=== PATIENT | female | born 1990 | race Caucasian/White ===

== ENCOUNTER 2016-08-29 16:16 | Emergency (ER) | payer BC ==
[2016-08-29 16:27] VITALS: O2SAT 99
[2016-08-29] MEDS ORDERED: DILAUDID 1 MG/ML INJECTION IV ONE (16:35)
[2016-08-29] MEDS ORDERED: Zofran 4 MG/2 ML VIAL IV ONE (16:35)
--- NOTE | 2016-08-29 16:42 | ERPHSYRPT ---
- History of Present Illness Time Seen by Provider: 08/29/16 16:30 Source: patient, family Exam Limitations: no limitations Patient Subjective Stated Complaint: rt headache since this morning Triage Nursing Assessment: rt headache since this morning. nausea with no vomiting. hx of migrianes. 21 weeks . photosensitivity. pupils andrés. Physician History: patient with hx of [id number]; this is typical for her and started this am; unable to get relief with meds at home; aura; right sided; retro bulbar; nausea ; photophobia mild; no fever; no trauma; no exposures, now 21 weeks Timing/Duration: today Quality: pressure Head Pain Location: frontal (right) Severity of Pain-Max: severe (8/10) Severity of Pain-Current: severe (8/10) Recent Head Trauma: no recent headache/trauma, chronic headaches Modifying Factors: Improves With: exposure to light, noise Associated Symptoms: nausea/vomiting, sensitive to light Previous symptoms: same symptoms as today Allergies/Adverse Reactions: No Known Drug Allergies Allergy (Unverified 08/29/16 16:27) Home Medications: No Reportable Medications [No Reported Medications] 05/12/16 [History] Hx Tetanus, Diphtheria Vaccination/Date Given: Yes Hx Influenza Vaccination/Date Given: No Hx Pneumococcal Vaccination/Date Given: No Immunizations Up to Date: Yes - Review of Systems Constitutional: No Symptoms Eyes: Photophobia, No Eye Pain, No Eye Redness, No Vision Changes, No Double Vision Ears, Nose, & Throat: No Symptoms Respiratory: No Cough, No Dyspnea, No Wheezing Cardiac: No Chest Pain, No Palpitations, No Syncope Abdominal/Gastrointestinal: Nausea, No Abdominal Pain, No Vomiting, No Diarrhea Genitourinary Symptoms: No Symptoms Musculoskeletal: No Symptoms Skin: No Symptoms Neurological: Headache, No Paralysis, No Parasthesia, No Seizure Psychological: No Symptoms Endocrine: No Symptoms Hematologic/Lymphatic: No Symptoms Immunological/Allergic: No Symptoms - Past Medical History Pertinent Past Medical History: Yes Neurological History: Migraines ENT History: No Pertinent History Cardiac History: No Pertinent History Respiratory History: Asthma Endocrine Medical History: No Pertinent History Musculoskeletal History: No Pertinent History GI Medical History: No Pertinent History History: No Pertinent History Psycho-Social History: No Pertinent History Female Reproductive Disorders: No Pertinent History Other Medical History: pt had been started on propranalol for headaches prior to getting - Past Surgical History Past Surgical History: No Neuro Surgical History: No Pertinent History Cardiac: No Pertinent History Respiratory: No Pertinent History Gastrointestinal: No Pertinent History Genitourinary: No Pertinent History Musculoskeletal: No Pertinent History Female Surgical History: No Pertinent History - Social History Smoking Status: Never smoker Exposure to second hand smoke: No Alcohol Use: None Drug Use: none Patient Lives Alone: No Significant Family History: no pertinent family hx - Female History Hx Now: Yes (; 21 weeks no problems to date) Expected Date of Delivery: 01/09/17 - Nursing Vital Signs Nursing Vital Signs: Initial Vital Signs Temperature 97.6 F Temperature Source Oral Pulse Rate 79 Respiratory Rate 18 Blood Pressure [Right Arm] 109/63 Pain Intensity 7 - Physical Exam General Appearance: moderate distress, alert, obese Eye Exam: PERRL/EOMI, eyes nml inspection, photophobia (mild; ), other (no papiledema; fundi benign;) Ears, Nose, Throat Exam: normal ENT inspection, TMs normal, pharynx normal, moist mucous membranes Neck Exam: normal inspection, non-tender, supple, full range of motion, No meningismus, No carotid bruit, No JVD Respiratory Exam: normal breath sounds, lungs clear, airway intact, No chest tenderness, No respiratory distress Cardiovascular Exam: regular rate/rhythm, normal heart sounds, normal peripheral pulses, capillary refill <2 sec, No murmur Gastrointestinal/Abdominal Exam: soft, normal bowel sounds, No tenderness, No distention, No guarding Back Exam: normal inspection, No CVA tenderness Extremity Exam: normal inspection, normal range of motion 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, 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, 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 Exam: normal hearing, normal speech, PERRL Coordination/Gait Exam: normal gait Motor/Sensory Exam: no motor deficit, no sensory deficit DTR Exam: knee (R): 4+, knee (L): 4+ Skin Exam: normal color, warm, dry, No rash SpO2 Interpretation: normal SpO2: 99 Oxygen Delivery: Room Air - Course Nursing assessment & vital signs reviewed: Yes Ordered Tests: Active Orders 24 hr Category Date Time Status IV Insertion STAT Care 08/29/16 16:35 Active Oxygen-ED Only VENTI-MASK 40% Care 08/29/16 16:35 Active Re-Check Vital Signs STAT Care 08/29/16 16:35 Completed Medication Summary Generic Name Dose Route Start Last Admin Trade Name Francia PRN Reason Stop Dose Admin Sodium Chloride 1,000 mls @ 100 mls/hr 08/29/16 16:45 08/29/16 16:49 Sodium Chloride 0.9% 1000 Ml IV 09/28/16 16:44 Not Given .Q10H ELLIS Discontinued Medications Generic Name Dose Route Start Last Admin Trade Name Francia PRN Reason Stop Dose Admin Hydromorphone HCl 0.5 mg 08/29/16 16:35 08/29/16 16:48 Dilaudid 1 Mg/Ml Injection IV 08/29/16 16:36 0.5 mg STAT ONE Administration Hydromorphone HCl Confirm 08/29/16 16:48 Dilaudid 1 Mg/Ml Injection Administered 08/29/16 16:49 Dose 1 mg .ROUTE .STK-MED ONE Sodium Chloride 500 mls @ 999 mls/hr 08/29/16 16:36 08/29/16 16:49 Sodium Chloride 0.9% 1000 Ml IV 08/29/16 17:06 999 mls/hr .Q31M STA Administration Sodium Chloride Confirm 08/29/16 16:48 Sodium Chloride 0.9% 1000 Ml Administered 08/29/16 16:49 Dose 1,000 mls @ ud .ROUTE .STK-MED ONE Ondansetron HCl 4 mg 08/29/16 16:35 08/29/16 16:48 Zofran 4 Mg/2 Ml Vial IV 08/29/16 16:36 4 mg STAT ONE Administration Ondansetron HCl Confirm 08/29/16 16:47 Zofran 4 Mg/2 Ml Vial Administered 08/29/16 16:48 Dose 4 mg .ROUTE .STK-MED ONE - Progress Progress: re-examined (after meds) Air Movement: good Progress Note: 08/29/16 16:43 discussed treatment and plan; will start IV and hydrate; place on hi flow O2; give zofran and small dose of narcotics; darken room; at bedside; will recheck 08/29/16 17:55 recheck and symptoms resolved; instructions given Blood Culture(s) Obtained: No Antibiotics given: No Counseled pt/family regarding: diagnosis, need for follow-up - Departure Time of Disposition: 17:56 Departure Disposition: Home Clinical Impression: Migraine, and not yet delivered in second trimester Condition: Stable Critical Care Time: No Referrals: RENETTA MARTE [Primary Care Provider] - Instructions: Headache Additional Instructions: Follow-up with family doctor as directed. Call for appointment. Return if any problems. If you smoke please stop. Call or follow up with your family doctor for assistance if you need it to stop. Please wear your seatbelt when driving. Have a nice day. Thank you for allowing us to participate in your care today. :o) Dr Baltazar Littlejohn
[2016-08-29] MEDS ORDERED: Sodium Chloride 0.9% 1000 ML 1,000 ML IV SCH (16:45)
[2016-08-29] MEDS ORDERED: Zofran 4 MG/2 ML VIAL ONE (16:47)
[2016-08-29] MEDS ORDERED: DILAUDID 1 MG/ML INJECTION ONE (16:48)
[2016-08-29] MEDS ORDERED: Sodium Chloride 0.9% 1000 ML 1,000 ML ONE (16:48)
[2016-08-29 18:28] VITALS: BP 110/77; PULSE 88
== END 2016-08-29 18:28 | disposition home or self-care (01) ==
LOC: ED 16:16
DX: G43.909 Migraine, unspecified, not intractable, without status migrainosus (principal); R11.2 Nausea with vomiting, unspecified; Z33.1 Pregnant state, incidental; Z3A.21 21 weeks gestation of pregnancy
CPT/HCPCS: 36000; 96360; 96361; 96374; 96375; 99283; J1170; J2405

== ENCOUNTER 2017-05-25 05:37 | Observation (INO) | payer BC ==
[2017-05-25] MEDS ORDERED: MORPHINE SULFATE 4 MG INJ IV ONE (06:22)
[2017-05-25] MEDS ORDERED: Zofran 4 MG/2 ML VIAL IV ONE ×2 (06:22→13:54)
[2017-05-25] MEDS ORDERED: Sodium Chloride 0.9% 1000 ML 1,000 ML IV STA (06:22)
--- NOTE | 2017-05-25 06:22 | ERPHSYRPT ---
- History of Present Illness Time Seen by Provider: 05/25/17 06:18 Source: patient, family Exam Limitations: no limitations Patient Subjective Stated Complaint: pt is approx 11 weeks -she had an ultrasound on friday that revealed 6 week size fetus -tonight she is bleeding heavily and having lower mid abd pain and cramping with sm clots Triage Nursing Assessment: pt is awake and alert and able to answer questions Physician History: The patient is a 26-year-old with heavy vaginal bleeding for one hour. Her last menstrual period was March 04. She had taken a home test and was positive. Last Friday she had an ultrasound done. By LMP she will was 12 weeks but by ultrasound she was 6 weeks. She was scheduled to have another ultrasound this Friday. Her OB doctor told her that she may lose the . She told her to be evaluated if she had heavy bleeding. For the past hour she's had abdominal cramping and passing large clots. Timing/Duration: hour(s) (1) Activites at Onset: none Quality: cramping Onset Location: suprapubic Pain Radiation: none Severity of Pain-Max: moderate Severity of Pain-Current: moderate Prior abdominal problems: none Sexual intercourse history: non-contributory Modifying Factors: Improves With: nothing Associated Symptoms: abdominal pain, vaginal discharge Allergies/Adverse Reactions: No Known Drug Allergies Allergy (Unverified 08/29/16 16:27) Home Medications: No Reportable Medications [No Reported Medications] 05/12/16 [History] Hx Tetanus, Diphtheria Vaccination/Date Given: Yes Hx Influenza Vaccination/Date Given: No Hx Pneumococcal Vaccination/Date Given: No - Review of Systems Constitutional: No Fever, No Chills Eyes: No Symptoms Ears, Nose, & Throat: No Symptoms Respiratory: No Cough, No Dyspnea Cardiac: No Chest Pain, No Edema, No Syncope Abdominal/Gastrointestinal: Abdominal Pain Genitourinary Symptoms: Vaginal Bleeding Musculoskeletal: No Back Pain, No Neck Pain Skin: No Rash Neurological: No Dizziness, No Focal Weakness, No Sensory Changes Psychological: No Symptoms Endocrine: No Symptoms Hematologic/Lymphatic: No Symptoms Immunological/Allergic: No Symptoms All Other Systems: Reviewed and Negative - Past Medical History Pertinent Past Medical History: Yes Neurological History: Migraines ENT History: No Pertinent History Cardiac History: No Pertinent History Respiratory History: Asthma Endocrine Medical History: Other Musculoskeletal History: No Pertinent History GI Medical History: No Pertinent History History: No Pertinent History Psycho-Social History: No Pertinent History Female Reproductive Disorders: No Pertinent History Other Medical History: pt had gestational diabetes with and preclampsia induced and del at 37 weeks - Past Surgical History Past Surgical History: No Neuro Surgical History: No Pertinent History Cardiac: No Pertinent History Respiratory: No Pertinent History Gastrointestinal: No Pertinent History Genitourinary: No Pertinent History Musculoskeletal: No Pertinent History Female Surgical History: No Pertinent History - Social History Smoking Status: Never smoker Exposure to second hand smoke: No Alcohol Use: None Drug Use: none Patient Lives Alone: No Significant Family History: no pertinent family hx - Female History Hx Last Menstrual Period: 03/04/17 Hx Now: Yes (; 21 weeks no problems to date) - Nursing Vital Signs Nursing Vital Signs: Initial Vital Signs Temperature 98 F 05/25/17 06:17 Pulse Rate 70 05/25/17 06:17 Respiratory Rate 16 05/25/17 06:17 Blood Pressure 130/70 05/25/17 06:17 O2 Sat by Pulse Oximetry 97 05/25/17 06:17 Pain Scale Pain Intensity 2 - Physical Exam General Appearance: no apparent distress, alert Eye Exam: PERRL/EOMI, eyes nml inspection Ears, Nose, Throat Exam: normal ENT inspection, TMs normal, pharynx normal, moist mucous membranes Neck Exam: normal inspection, non-tender, supple, full range of motion Respiratory Exam: normal breath sounds, lungs clear, No respiratory distress Cardiovascular Exam: regular rate/rhythm, normal heart sounds, normal peripheral pulses Gastrointestinal/Abdomen Exam: tenderness (suprapubic) Pelvic Exam: deferred Rectal Exam: not done Back Exam: normal inspection, normal range of motion, No CVA tenderness, No vertebral tenderness Extremity Exam: normal inspection, normal range of motion, pelvis stable Neurologic Exam: alert, 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, cooperative, 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 as tested, normal mood/affect, sensation nml, No motor deficits Skin Exam: normal color, warm, dry Lymphatic Exam: No adenopathy SpO2 Interpretation: normal Ordered Tests: Active Orders 24 hr Category Date Time Status IV Insertion STAT Care 05/25/17 06:22 Active PELVIC [US] Stat Exams 05/25/17 06:23 Ordered BMP Stat Lab 05/25/17 06:22 Ordered CBC W DIFF Stat Lab 05/25/17 06:22 Completed HCG, Quantitative (Inhouse) Stat Lab 05/25/17 06:22 Ordered Medication Summary Generic Name Dose Route Start Last Admin Trade Name Francia PRN Reason Stop Dose Admin Sodium Chloride 1,000 mls @ 999 mls/hr 05/25/17 06:22 05/25/17 06:33 Sodium Chloride 0.9% 1000 Ml IV 05/25/17 07:22 999 mls/hr .Q1H1M STA Administration Discontinued Medications Generic Name Dose Route Start Last Admin Trade Name Francia PRN Reason Stop Dose Admin Sodium Chloride Confirm 05/25/17 06:29 Sodium Chloride 0.9% 1000 Ml Administered 05/25/17 06:30 Dose 1,000 mls @ ud .ROUTE .STK-MED ONE Morphine Sulfate 4 mg 05/25/17 06:22 05/25/17 06:34 Morphine Sulfate 4 Mg Inj IV 05/25/17 06:23 4 mg STAT ONE Administration Morphine Sulfate Confirm 05/25/17 06:29 Morphine Sulfate 4 Mg Inj Administered 05/25/17 06:30 Dose 4 mg .ROUTE .STK-MED ONE Ondansetron HCl 4 mg 05/25/17 06:22 05/25/17 06:33 Zofran 4 Mg/2 Ml Vial IV 05/25/17 06:23 4 mg STAT ONE Administration Ondansetron HCl Confirm 05/25/17 06:29 Zofran 4 Mg/2 Ml Vial Administered 05/25/17 06:30 Dose 4 mg .ROUTE .STK-MED ONE Lab/Rad Data: Laboratory Result Diagrams 05/25/17 06:22 Laboratory Results 05/25/17 Range/Units 06:22 WBC 10.9 H (4.0-10.5) K/mm3 RBC 4.36 (4.1-5.4) M/mm3 Hgb 10.5 L (12.0-16.0) gm/dl Hct 33.6 L (35-47) % MCV 77.1 L (78-100) fl MCH 24.0 L (26-32) pg MCHC 31.3 L (32-36) g/dl RDW 16.7 H (11.5-14.0) % Plt Count 360 (150-450) K/mm3 MPV 9.6 H (6-9.5) fl Gran % 67.9 H (36.0-66.0) % Lymphocytes % 19.4 L (24.0-44.0) % Monocytes % 6.6 (0.0-12.0) % Eosinophils % 5.6 H (0.00-5.0) % Basophils % 0.5 (0.0-0.4) % Basophils # 0.05 (0-0.4) - Progress Progress: unchanged Discussed with : August Will see patient in: hospital (observation) - Departure Time of Disposition: 07:13 Departure Disposition: Observation (per DR Koch) Clinical Impression: Vaginal bleeding, Spontaneous Condition: Stable Critical Care Time: No Referrals: RENETTA MARTE [NON-STAFF PHY W/O PRIVILEGES] - Additional Instructions: You have significant vaginal bleeding coupled with spontaneous . You' re being admitted for dilatation and curettage by Dr. Koch.
[2017-05-25] MEDS ORDERED: Zofran 4 MG/2 ML VIAL ONE (06:29)
[2017-05-25] MEDS ORDERED: Sodium Chloride 0.9% 1000 ML 1,000 ML ONE (06:29)
[2017-05-25] MEDS ORDERED: MORPHINE SULFATE 4 MG INJ ONE (06:29)
[2017-05-25 07:01] LABS: BASOPHIL % 0.5 % (0.0-0.4); Eosinophil % 5.6 % (0.00-5.0); Granulocytes % 67.9 % (36.0-66.0); Lymphocytes % 19.4 % (24.0-44.0); Mean Cell Volume 77.1 fl (78-100); Mean Platelet Volume 9.6 fl (6-9.5); Monocytes % 6.6 % (0.0-12.0); Platelet Count 360 K/mm3 (150-450); Red Blood Count 4.36 M/mm3 (4.1-5.4); Red Cell Distribution Width 16.7 % (11.5-14.0); White Blood Count 10.9 K/mm3 (4.0-10.5)
[2017-05-25 07:13] LABS: BLOOD UREA NITROGEN 9 mg/dL (9-20); CHLORIDE 104 mEq/L (98-107); Carbon Dioxide 25.2 mEq/L (21-32); Glucose 122 MG/DL (70-110); HCG, Quantitative (Inhouse) 5888 IU/L (0-6); Potassium 3.7 mEq/L (3.5-5.1); SODIUM 139 mEq/L (136-145)
[2017-05-25] MEDS ORDERED: Lactated Ringers 1,000 ML IV ONE ×2 (07:43→09:14)
[2017-05-25] MEDS ORDERED: KEFZOL 1 GM ONE (08:38)
[2017-05-25] MEDS ORDERED: Sodium Chloride 0.9% 1000 ML 1,000 ML IV SCH (09:47)
[2017-05-25] MEDS ORDERED: Zofran 4 MG/2 ML VIAL IV PRN (09:47)
[2017-05-25] MEDS ORDERED: NAPROSYN 375 MG PO PRN (10:34)
[2017-05-25 13:07] VITALS: BP 123/60; PULSE 72; O2SAT 99
[2017-05-25] MEDS ORDERED: Quelicin Fliptop 200 MG/10 ML IJ ONE (13:54)
[2017-05-25] MEDS ORDERED: SUBLIMAZE 100 MCG/2 ML IV ONE (13:54)
[2017-05-25] MEDS ORDERED: DIPRIVAN 200 MG/20 ML IV ONE (13:54)
[2017-05-25] MEDS ORDERED: Decadron 4 MG INJ IV ONE (13:54)
[2017-05-25] MEDS ORDERED: Versed 2 MG/2 ML Injection IV ONE (13:54)
--- NOTE | 2017-05-25 22:41 | XRAY ---
Indication: Cramping and heavy bleeding. Two-dimensional transabdominal pelvic ultrasound was performed. Comparison: May 12, 2016. There is now ovoid fluid seen at the level of the lower uterine segment/endocervix measuring at least 1.8 cm. No pole or heart tones. Left ovary measures 2.5 x 1.4 x 3.3 cm and the right measures 2.8 x 2.8 x 2.7 cm. No suspicious adnexal mass or free fluid. Impression: New fluid in the lower uterine segment/endocervix either hemorrhage versus incomplete . No pole/heart tones. Comment: Preliminary report was given.
--- NOTE | 2017-05-26 07:55 | OP ---
SURGERY DATE: 05/25/2017814 PREOPERATIVE DIAGNOSIS: First trimester vaginal bleeding and missed . POSTOPERATIVE DIAGNOSIS: First trimester vaginal bleeding and missed . PROCEDURE: Suction dilatation and curettage. SURGEON: Dr. Koch. ANESTHESIA: General HISTORY: The patient is a 26 year old 2, para 1, white female who presented to the emergency room. She reports that she had been spotting off and on for the past week. The spotting became more last evening. She woke up at 0430 hours in the morning with pelvic pain and increasing bleeding. She presented herself the emergency room and was subsequently admitted to our facility for D&C procedure. The patient was described the risks of the procedure including risk of perforation of the uterus, Asherman syndrome, bleeding requiring transfusion, possible endometritis. The patient verbalized her understanding and desired to have the procedure performed. DESCRIPTION OF PROCEDURE: The patient was prepped and draped in the dorsal lithotomy position. After general anesthesia was induced the bimanual palpation revealed the uterus to be quite boggy and somewhat dilated already. Upon the placement of the weighted speculum we noticed the cervix was dilated approximately 2 cm. There was a clot and products of conception present at the os and this was removed using the sponge stick. We then used the #12 suction curette to remove the rest of the products of conception from the endometrial cavity this was then followed by sharp curettage with good gritty feel in all four quadrants and minimal bleeding at the end of this portion of the procedure. The patient was given 2 gm of Cefazolin intraoperatively and the Pitocin to help control the bleeding which was fairly minimal by the end of the procedure. The patient was awaken and taken back to the recovery room in good condition.
== END 2017-05-25 13:55 | disposition home or self-care (01) ==
LOC: ED 05:37 → MED SURG 09:39
PROVIDERS: ADMIT Family Medicine; ATTEND Family Medicine
PROC: 10D17ZZ Extraction of Products of Conception, Retained, Via Natural or Artificial Opening (ICD-10-PCS; principal; 2017-05-25)
DX: O20.9 Hemorrhage in early pregnancy, unspecified (principal); O02.1 Missed abortion
CPT/HCPCS: 01965; 36000; 36415; 76801; 80048; 84702; 85025; 86850; 86900; 86901; 88305; 96360; 96361; 96374; 96375; 99140; 99285; G0378; J0330; J0690; J1100; J2250; J2270; J2405; J2704; J3010; A9270-GY

== ENCOUNTER 2017-07-18 03:40 | Emergency (ER) | payer BC ==
[2017-07-18] MEDS ORDERED: Reglan 10 MG/2 ML IV ONE (03:54)
[2017-07-18] MEDS ORDERED: TORAdol 30 mg Injection IV ONE (03:54)
[2017-07-18] MEDS ORDERED: BENADRYL 50 MG/ML IV ONE (03:54)
[2017-07-18] MEDS ORDERED: Sodium Chloride 0.9% 1000 ML 1,000 ML IV STA (03:55)
--- NOTE | 2017-07-18 04:00 | ERPHSYRPT ---
- History of Present Illness Time Seen by Provider: 07/18/17 03:50 Source: patient Exam Limitations: no limitations Patient Subjective Stated Complaint: right sided "Migraine" headaches Physician History: Pt started c/o right frontal headaches, radiating to the right temporal, parietal area 2 days ago. The pain became worse tonight, she has been gagging, denies vomiting, visual changes, but light sensitive. She denies fever, vomiting , other complaints. She has had similar headaches many times in the past. Timing/Duration: day(s) (2), gradual onset, worse Quality: throbbing Head Pain Location: frontal, temporal Severity of Pain-Max: severe Severity of Pain-Current: severe Recent Head Trauma: no recent headache/trauma, frequent headaches Associated Symptoms: sensitive to light Previous symptoms: same symptoms as today Allergies/Adverse Reactions: No Known Drug Allergies Allergy (Unverified 08/29/16 16:27) Home Medications: Vits W-Ca,Fe,FA(<1Mg) [] 1 each PO DAILY 05/25/17 [History] Hx Tetanus, Diphtheria Vaccination/Date Given: Yes Hx Influenza Vaccination/Date Given: No Hx Pneumococcal Vaccination/Date Given: No - Review of Systems Constitutional: No Symptoms Abdominal/Gastrointestinal: Nausea Neurological: Headache All Other Systems: Reviewed and Negative - Past Medical History Pertinent Past Medical History: Yes Neurological History: Migraines ENT History: No Pertinent History Cardiac History: No Pertinent History Respiratory History: No Pertinent History Endocrine Medical History: Other Musculoskeletal History: No Pertinent History GI Medical History: No Pertinent History History: No Pertinent History Psycho-Social History: No Pertinent History Female Reproductive Disorders: No Pertinent History Other Medical History: pt had gestational diabetes with and preclampsia induced and del at 37 weeks - Past Surgical History Past Surgical History: Yes Neuro Surgical History: No Pertinent History Cardiac: No Pertinent History Respiratory: No Pertinent History Gastrointestinal: No Pertinent History Genitourinary: No Pertinent History Musculoskeletal: No Pertinent History Female Surgical History: Dilation & Curettage - Social History Smoking Status: Never smoker Exposure to second hand smoke: No Alcohol Use: None Drug Use: none Patient Lives Alone: No Significant Family History: no pertinent family hx - Female History Hx Now: No - Nursing Vital Signs Nursing Vital Signs: Initial Vital Signs Temperature 97.9 F 07/18/17 03:45 Pulse Rate 89 07/18/17 03:45 Blood Pressure 127/60 07/18/17 03:45 O2 Sat by Pulse Oximetry 98 07/18/17 03:45 Pain Scale Pain Intensity 2 - Physical Exam General Appearance: no apparent distress Eye Exam: PERRL/EOMI, eyes nml inspection Ears, Nose, Throat Exam: normal ENT inspection, TMs normal, pharynx normal Neck Exam: normal inspection, non-tender, supple Respiratory Exam: normal breath sounds, lungs clear, airway intact Cardiovascular Exam: regular rate/rhythm, normal heart sounds, normal peripheral pulses, No murmur Gastrointestinal/Abdominal Exam: soft, normal bowel sounds, No tenderness Back Exam: normal inspection, No CVA tenderness Extremity Exam: normal inspection 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, 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, 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 Exam: normal speech, PERRL Motor/Sensory Exam: no motor deficit Skin Exam: normal color, warm, dry, No rash Lymphatic Exam: No adenopathy SpO2 Interpretation: normal - CT Exams Head CT Interpretation: No/Intracranial Hemorrhag Ordered Tests: Active Orders 24 hr Category Date Time Status Clean Catch Urine Specimen STAT Care 07/18/17 03:52 Active HEAD WITHOUT CONTRAST [CT] Stat Exams 07/18/17 03:52 Taken CBC W DIFF Stat Lab 07/18/17 04:10 Completed CMP Stat Lab 07/18/17 04:10 Completed CULTURE,URINE Stat Lab 07/18/17 04:10 Received Erythrocyte Sedimentation Rate Stat Lab 07/18/17 04:10 Completed HCG,QUALITATIVE URINE Stat Lab 07/18/17 04:11 Completed PROTIME WITH INR Stat Lab 07/18/17 04:10 Completed UA W/ MICROSCOPIC Stat Lab 07/18/17 04:10 Completed Medication Summary Discontinued Medications Generic Name Dose Route Start Last Admin Trade Name Damionq PRN Reason Stop Dose Admin Diphenhydramine HCl 25 mg 07/18/17 03:54 07/18/17 04:12 Benadryl 50 Mg/Ml IV 07/18/17 03:55 25 mg STAT ONE Administration Diphenhydramine HCl Confirm 07/18/17 04:10 Benadryl 50 Mg/Ml Administered 07/18/17 04:11 Dose 50 mg .ROUTE .STK-MED ONE Sodium Chloride 1,000 mls @ 999 mls/hr 07/18/17 03:55 07/18/17 04:12 Sodium Chloride 0.9% 1000 Ml IV 07/18/17 04:55 999 mls/hr .Q1H1M STA Administration Sodium Chloride Confirm 07/18/17 04:10 Sodium Chloride 0.9% 1000 Ml Administered 07/18/17 04:11 Dose 1,000 mls @ ud .ROUTE .STK-MED ONE Ketorolac Tromethamine 30 mg 07/18/17 03:54 07/18/17 04:12 Toradol 30 Mg Injection IV 07/18/17 03:55 30 mg STAT ONE Administration Ketorolac Tromethamine Confirm 07/18/17 04:10 Toradol 30 Mg Injection Administered 07/18/17 04:11 Dose 30 mg .ROUTE .STK-MED ONE Metoclopramide HCl 10 mg 07/18/17 03:54 07/18/17 04:12 Reglan 10 Mg/2 Ml IV 07/18/17 03:55 10 mg STAT ONE Administration Metoclopramide HCl Confirm 07/18/17 04:09 Reglan 10 Mg/2 Ml Administered 07/18/17 04:10 Dose 10 mg .ROUTE .STK-MED ONE Lab/Rad Data: Laboratory Result Diagrams 07/18/17 04:10 07/18/17 04:10 Laboratory Results 07/18/17 07/18/17 07/18/17 Range/Units 04:11 04:10 04:10 WBC (4.0-10.5) K/mm3 RBC (4.1-5.4) M/mm3 Hgb (12.0-16.0) gm/dl Hct (35-47) % MCV (78-100) fl MCH (26-32) pg MCHC (32-36) g/dl RDW (11.5-14.0) % Plt Count (150-450) K/mm3 MPV (6-9.5) fl Gran % (36.0-66.0) % Lymphocytes % (24.0-44.0) % Monocytes % (0.0-12.0) % Eosinophils % (0.00-5.0) % Basophils % (0.0-0.4) % Basophils # (0-0.4) ESR (0-20) mm/hr INR 1.11 (0.8-3.0) Sodium (136-145) mEq/L Potassium (3.5-5.1) mEq/L Chloride (98-107) mEq/L Carbon Dioxide (21-32) mEq/L Anion Gap (5-15) MEQ/L BUN (9-20) mg/dL Creatinine (0.55-1.30) mg/dl Estimated GFR ML/MIN Glucose (70-110) MG/DL Calcium (8.5-10.1) mg/dL Total Bilirubin (0.2-1.0) mg/dL AST (15-37) U/L ALT (12-78) U/L Alkaline Phosphatase (46-116) U/L Serum Total Protein (6.4-8.2) gm/dL Albumin (3.4-5.0) g/dL Ur Collection Type VOID Urine Color YELLOW (YELLOW) Urine Appearance CLEAR (CLEAR) Urine pH 5.0 (5-6) Ur Specific [place] 1.020 (1.005-1.025) Urine Protein NEGATIVE (Negative) Urine Ketones NEGATIVE (NEGATIVE) Urine Blood NEGATIVE (0-5) Efrem/ul Urine Nitrite NEGATIVE (NEGATIVE) Urine Bilirubin NEGATIVE (NEGATIVE) Urine Urobilinogen NORMAL (0-1) mg/dL Ur Leukocyte Esterase 1+ (NEGATIVE) Urine Microscopic RBC 2-5 (0-2) /HPF Urine Microscopic WBC 5-10 (0-5) /HPF Ur Epithelial Cells MODERATE (FEW) /HPF Urine Bacteria MODERATE (NEGATIVE) /HPF Urine Mucus MODERATE (NEGATIVE) /HPF Urine Culture Reflexed YES (NO) Urine Glucose NEGATIVE (NEGATIVE) mg/dL Urine HCG, Qual NEGATIVE (Negative) Slides for Path Review Specimen Received 07/18/17 0894 07/18/17 07/18/17 Range/Units 04:10 04:10 WBC 13.0 H (4.0-10.5) K/mm3 RBC 4.19 (4.1-5.4) M/mm3 Hgb 9.1 L (12.0-16.0) gm/dl Hct 30.3 L (35-47) % MCV 72.3 L (78-100) fl MCH 21.7 L (26-32) pg MCHC 30.0 L (32-36) g/dl RDW 15.9 H (11.5-14.0) % Plt Count 421 (150-450) K/mm3 MPV 8.7 (6-9.5) fl Gran % 59.8 (36.0-66.0) % Lymphocytes % 26.7 (24.0-44.0) % Monocytes % 7.5 (0.0-12.0) % Eosinophils % 5.7 H (0.00-5.0) % Basophils % 0.3 (0.0-0.4) % Basophils # 0.04 (0-0.4) ESR 47 H (0-20) mm/hr INR (0.8-3.0) Sodium 139 (136-145) mEq/L Potassium 3.6 (3.5-5.1) mEq/L Chloride 104 (98-107) mEq/L Carbon Dioxide 26.6 (21-32) mEq/L Anion Gap 11.7 (5-15) MEQ/L BUN 11 (9-20) mg/dL Creatinine 0.77 (0.55-1.30) mg/dl Estimated GFR > 60 ML/MIN Glucose 101 (70-110) MG/DL Calcium 9.2 (8.5-10.1) mg/dL Total Bilirubin 0.30 (0.2-1.0) mg/dL AST 13 L (15-37) U/L ALT 20 (12-78) U/L Alkaline Phosphatase 77 (46-116) U/L Serum Total Protein 7.5 (6.4-8.2) gm/dL Albumin 3.4 (3.4-5.0) g/dL Ur Collection Type Urine Color (YELLOW) Urine Appearance (CLEAR) Urine pH (5-6) Ur Specific [place] (1.005-1.025) Urine Protein (Negative) Urine Ketones (NEGATIVE) Urine Blood (0-5) Efrem/ul Urine Nitrite (NEGATIVE) Urine Bilirubin (NEGATIVE) Urine Urobilinogen (0-1) mg/dL Ur Leukocyte Esterase (NEGATIVE) Urine Microscopic RBC (0-2) /HPF Urine Microscopic WBC (0-5) /HPF Ur Epithelial Cells (FEW) /HPF Urine Bacteria (NEGATIVE) /HPF Urine Mucus (NEGATIVE) /HPF Urine Culture Reflexed (NO) Urine Glucose (NEGATIVE) mg/dL Urine HCG, Qual (Negative) Slides for Path Review YES Specimen Received - Progress Progress: improved Progress Note: 12/08/17 05:25 Pt improved after iv fluids, Toradol and Benadryl, afebrile, her pain is down 2/ 10 from 8/10, not nauseated. I discussed our findings, and the plan to discharge her, she understood and agreed to go home and follow up with her doctor. All questions answered, she has been stable, and comfortable, alert and oriented x4. 07/18/17 05:28 Blood Culture(s) Obtained: No Antibiotics given: Yes - Departure Time of Disposition: 05:29 Departure Disposition: Home Clinical Impression: Migraine Qualifiers: Migraine type: without aura Status migrainosus presence: without status migrainosus Intractability: not intractable Qualified Code(s): G43.009 - Migraine without aura, not intractable, without status migrainosus Sinusitis Qualifiers: Sinusitis location: unspecified location Chronicity: acute Recurrence: not specified as recurrent Qualified Code(s): J01.90 - Acute sinusitis, unspecified UTI (urinary tract infection) Qualifiers: Urinary tract infection type: site unspecified Hematuria presence: without hematuria Qualified Code(s): N39.0 - Urinary tract infection, site not specified Condition: Stable Critical Care Time: No Referrals: DANO FINCH [Primary Care Provider] - Instructions: Headache, Urinary Tract Infection (UTI), Sinusitis Additional Instructions: Rest x 2-3 days, drink plenty of fluids, return if severe headaches, vomiting, high fever> 102 F, lethargy ! Prescriptions: Amoxicillin/Potassium Clav [Augmentin 875-125 Tablet] 1 each PO BID 7 Days tablet Butalb/Acetaminophen/Caffeine [Fioricet 50-300-40 mg Capsule] 1 each PO Q6- 8HPRN PRN 7 Days #10 capsule PRN Reason: Headache
[2017-07-18] MEDS ORDERED: Reglan 10 MG/2 ML ONE (04:09)
[2017-07-18] MEDS ORDERED: TORAdol 30 mg Injection ONE (04:10)
[2017-07-18] MEDS ORDERED: Sodium Chloride 0.9% 1000 ML 1,000 ML ONE (04:10)
[2017-07-18] MEDS ORDERED: BENADRYL 50 MG/ML ONE (04:10)
[2017-07-18 04:14] LABS: BASOPHIL % 0.3 % (0.0-0.4); Eosinophil % 5.7 % (0.00-5.0); Granulocytes % 59.8 % (36.0-66.0); Lymphocytes % 26.7 % (24.0-44.0); Mean Cell Volume 72.3 fl (78-100); Mean Corpuscular Hemoglobin 21.7 pg (26-32); Mean Platelet Volume 8.7 fl (6-9.5); Monocytes % 7.5 % (0.0-12.0); Platelet Count 421 K/mm3 (150-450); Red Blood Count 4.19 M/mm3 (4.1-5.4); Red Cell Distribution Width 15.9 % (11.5-14.0)
[2017-07-18 04:26] LABS: Bilirubin NEGATIVE (NEGATIVE); Blood NEGATIVE Ery/ul (0-5); COMPLETE URINE MICROSCOPIC? YES; Collection Type VOID; Glucose NEGATIVE (NEGATIVE); Leukocyte Esterase 1+ (NEGATIVE)
[2017-07-18 04:27] LABS: ADD URINE CULTURE? YES (NO); Bacteria MODERATE /HPF (NEGATIVE); Epithelial Cells MODERATE /HPF (FEW); Mucus MODERATE /HPF (NEGATIVE)
[2017-07-18 04:33] LABS: INR 1.11 (0.8-3.0); PROTIME 12.4 SECONDS (9.95-12.35)
[2017-07-18 04:34] LABS: Erythrocyte Sedimentation Rate 47 mm/hr (0-20)
[2017-07-18 04:35] LABS: ALBUMIN 3.4 g/dL (3.4-5.0); ALKALINE PHOSPHATASE 77 U/L (46-116); ANION GAP 11.7 MEQ/L (5-15); BLOOD UREA NITROGEN 11 mg/dL (9-20); CHLORIDE 104 mEq/L (98-107); Carbon Dioxide 26.6 mEq/L (21-32); Glucose 101 MG/DL (70-110); Potassium 3.6 mEq/L (3.5-5.1); SGOT/AST 13 U/L (15-37); SGPT/ALT 20 U/L (12-78); SODIUM 139 mEq/L (136-145); Total Protein 7.5 gm/dL (6.4-8.2)
[2017-07-18 05:49] VITALS: BP 126/67; PULSE 93; O2SAT 96
--- NOTE | 2017-07-18 09:14 | XRAY ---
Indication: Migraine headaches. Multiple contiguous axial images obtained through the head without contrast. Comparison: None. Normal-appearing brain parenchyma, ventricles, and bony calvarium. There is mild/moderate mucosal thickening of both ethmoid, both sphenoid, and lesser degree both maxillary sinuses. Mastoid air cells are clear. Impression: No acute intracranial abnormalities. Incidental paranasal sinus disease. Comment: Preliminary interpretation was made by [facility]. No discrepancy. CT DI 70.38
== END 2017-07-18 05:48 | disposition home or self-care (01) ==
LOC: ED 03:40
DX: G43.909 Migraine, unspecified, not intractable, without status migrainosus (principal); J01.90 Acute sinusitis, unspecified; N39.0 Urinary tract infection, site not specified
CPT/HCPCS: 36415; 70450; 80053; 81000; 84703; 85025; 85610; 85652; 87086; 96360; 96374; 96375; 99284; J1200; J1885

== ENCOUNTER 2018-01-16 21:54 | Emergency (ER) | payer BC ==
[2018-01-16] MEDS ORDERED: BENADRYL 50 MG/ML IV ONE (22:18)
[2018-01-16] MEDS ORDERED: TORAdol 30 mg Injection IV ONE (22:18)
[2018-01-16] MEDS ORDERED: Reglan 10 MG/2 ML IV ONE (22:18)
[2018-01-16] MEDS ORDERED: BENADRYL 50 MG/ML ONE (22:22)
[2018-01-16] MEDS ORDERED: TORAdol 30 mg Injection ONE (22:22)
[2018-01-16] MEDS ORDERED: Reglan 10 MG/2 ML ONE (22:22)
--- NOTE | 2018-01-16 22:39 | ERPHSYRPT ---
- History of Present Illness Time Seen by Provider: 01/16/18 22:02 Source: patient Exam Limitations: no limitations Patient Subjective Stated Complaint: pt co migraine headache since earlier today ; nausea earlier but denies upon arrival; pt states she has some photophobia with headache; localized to R side behind eye and into the side of her head. Triage Nursing Assessment: pt a&o x3; skin p, w, & d; ambulated to room per self ; no other distress noted; family at bedside. Physician History: 27 y/o female with history of migraine headache comes to the ER with complaints of right sided headache that started today. Pt describes the pain as throbbing, constant, 5/10, and not relieved by norflex. Pt also admits to photophobia, nausea and blurry vision. Pt denies any fever, chills or neck pain. Timing/Duration: today Quality: throbbing Head Pain Location: temporal Severity of Pain-Max: moderate Severity of Pain-Current: moderate Associated Symptoms: vision changes Previous symptoms: same symptoms as today Allergies/Adverse Reactions: No Known Drug Allergies Allergy (Unverified 01/16/18 22:16) Home Medications: No Reportable Medications [No Reported Medications] 01/16/18 [History] Hx Tetanus, Diphtheria Vaccination/Date Given: Yes Hx Influenza Vaccination/Date Given: No Hx Pneumococcal Vaccination/Date Given: Yes Immunizations Up to Date: Yes - Review of Systems Constitutional: No Fever, No Chills Eyes: Photophobia Ears, Nose, & Throat: No Symptoms Respiratory: No Cough, No Dyspnea Cardiac: No Chest Pain, No Edema, No Syncope Abdominal/Gastrointestinal: No Abdominal Pain, No Nausea, No Vomiting, No Diarrhea Genitourinary Symptoms: No Dysuria Musculoskeletal: No Back Pain, No Neck Pain Skin: No Rash Neurological: Headache, No Dizziness, No Focal Weakness, No Sensory Changes Psychological: No Symptoms Endocrine: No Symptoms All Other Systems: Reviewed and Negative - Past Medical History Pertinent Past Medical History: Yes Neurological History: Migraines ENT History: No Pertinent History Cardiac History: No Pertinent History Respiratory History: No Pertinent History Endocrine Medical History: Other Musculoskeletal History: No Pertinent History GI Medical History: No Pertinent History History: No Pertinent History Psycho-Social History: No Pertinent History Female Reproductive Disorders: No Pertinent History Other Medical History: pt had gestational diabetes with and preclampsia induced and del at 37 weeks - Past Surgical History Past Surgical History: Yes Neuro Surgical History: No Pertinent History Cardiac: No Pertinent History Respiratory: No Pertinent History Gastrointestinal: No Pertinent History Genitourinary: No Pertinent History Musculoskeletal: No Pertinent History Female Surgical History: Dilation & Curettage Other Surgical History: D&C - Social History Smoking Status: Never smoker Exposure to second hand smoke: No Alcohol Use: None Drug Use: none Patient Lives Alone: No Significant Family History: no pertinent family hx - Female History Hx Last Menstrual Period: now Hx Now: No - Nursing Vital Signs Nursing Vital Signs: Initial Vital Signs Temperature 99 F 01/16/18 22:05 Pulse Rate 76 01/16/18 22:05 Respiratory Rate 16 01/16/18 22:05 Blood Pressure 132/78 01/16/18 22:05 O2 Sat by Pulse Oximetry 100 01/16/18 22:05 Pain Scale Pain Intensity 7 - Physical Exam General Appearance: mild distress Eye Exam: PERRL/EOMI, photophobia Ears, Nose, Throat Exam: normal ENT inspection, moist mucous membranes Neck Exam: normal inspection, supple, full range of motion, No meningismus Respiratory Exam: normal breath sounds, lungs clear Cardiovascular Exam: regular rate/rhythm, normal heart sounds Gastrointestinal/Abdominal Exam: soft, No tenderness, No distention Back Exam: normal inspection, normal range of motion 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, 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, 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 Exam: normal speech, PERRL, No facial droop Coordination/Gait Exam: normal cerebellar function Motor/Sensory Exam: no motor deficit, no sensory deficit Skin Exam: normal color, warm, dry, No rash SpO2: 100 Oxygen Delivery: Room Air - Course Nursing assessment & vital signs reviewed: Yes Ordered Tests: Active Orders 24 hr Category Date Time Status IV Insertion STAT Care 01/16/18 22:18 Active Medication Summary Discontinued Medications Generic Name Dose Route Start Last Admin Trade Name Freq PRN Reason Stop Dose Admin Diphenhydramine HCl 25 mg 01/16/18 22:18 01/16/18 22:38 Benadryl 50 Mg/Ml IV 01/16/18 22:19 25 mg STAT ONE Administration Diphenhydramine HCl Confirm 01/16/18 22:22 Benadryl 50 Mg/Ml Administered 01/16/18 22:23 Dose 50 mg .ROUTE .STK-MED ONE Ketorolac Tromethamine 30 mg 01/16/18 22:18 01/16/18 22:44 Toradol 30 Mg Injection IV 01/16/18 22:19 30 mg STAT ONE Administration Ketorolac Tromethamine Confirm 01/16/18 22:22 Toradol 30 Mg Injection Administered 01/16/18 22:23 Dose 30 mg .ROUTE .STK-MED ONE Metoclopramide HCl 10 mg 01/16/18 22:18 01/16/18 22:41 Reglan 10 Mg/2 Ml IV 01/16/18 22:19 10 mg STAT ONE Administration Metoclopramide HCl Confirm 01/16/18 22:22 Reglan 10 Mg/2 Ml Administered 01/16/18 22:23 Dose 10 mg .ROUTE .STK-MED ONE - Progress Progress: improved Progress Note: 01/16/18 23:19 Pt feels better after receiving benadryl, reglan and toradol. Pt will F/U with PCP in the next few days. - Departure Time of Disposition: 23:19 Departure Disposition: Home Clinical Impression: Migraine headache Qualifiers: Migraine type: unspecified Status migrainosus presence: without status migrainosus Intractability: not intractable Qualified Code(s): G43.909 - Migraine, unspecified, not intractable, without status migrainosus Condition: Stable Critical Care Time: No Instructions: Headache, Adult (DC) Additional Instructions: Follow up with your primary care doctor in the next few days for additional recommendations for migraine headache.
[2018-01-16 23:44] VITALS: BP 134/77; PULSE 66; O2SAT 99
== END 2018-01-16 23:43 | disposition home or self-care (01) ==
LOC: ED 21:54
DX: G43.909 Migraine, unspecified, not intractable, without status migrainosus (principal)
CPT/HCPCS: 36000; 96374; 96375; 99284; J1200; J1885

== ENCOUNTER 2018-09-15 08:12 | Emergency (ER) | payer BC ==
[2018-09-15] MEDS ORDERED: Reglan 10 MG/2 ML IV ONE (08:29)
[2018-09-15] MEDS ORDERED: BENADRYL 50 MG/ML IV ONE (08:29)
[2018-09-15] MEDS ORDERED: BENADRYL 50 MG/ML ONE (08:33)
--- NOTE | 2018-09-15 08:33 | ERPHSYRPT ---
- History of Present Illness Time Seen by Provider: 09/15/18 08:25 Source: patient Exam Limitations: no limitations Patient Subjective Stated Complaint: pt here for a headache for 2 days, she states she has migraine headaches and her normal meds have not helped Triage Nursing Assessment: pt alert, walked in, resp easy, skin w/d/p. co nausea as well Physician History: 28-year-old white female arrives with complaint of frontal headache, nausea, photophobia symptoms since yesterday she denies any fevers patient does have a history of migraines. Past medical history includes migraines, gestational diabetes, preeclampsia. Past surgical history includes D&C. Social history patient denies tobacco alcohol or illicit drug use. Timing/Duration: yesterday Severity: moderate Associated Symptoms: nausea, vomiting, headaches, No abdominal pain, No shortness of breath, No heartburn, No diaphoresis, No cough, No chills, No chest pain, No fever, No loss of appetite, No malaise, No rash, No syncope, No seizure, No weakness Allergies/Adverse Reactions: No Known Drug Allergies Allergy (Verified 09/15/18 08:24) Home Medications: Topiramate [Topamax] 25 mg DAILY 09/15/18 [History] Hx Tetanus, Diphtheria Vaccination/Date Given: No Hx Influenza Vaccination/Date Given: No Hx Pneumococcal Vaccination/Date Given: No Immunizations Up to Date: Yes - Review of Systems Constitutional: No Fever, No Chills Eyes: Photophobia, No Discharge, No Eye Pain, No Eye Redness, No Itchy, No Tearing, No Vision Changes, No Double Vision, No Foreign Body Sensation Ears, Nose, & Throat: No Symptoms Respiratory: No Cough, No Dyspnea Cardiac: No Chest Pain, No Edema, No Syncope Abdominal/Gastrointestinal: Nausea, Vomiting, No Abdominal Pain, No Diarrhea, No Constipation - Past Medical History Pertinent Past Medical History: Yes Neurological History: Migraines ENT History: No Pertinent History Cardiac History: No Pertinent History Respiratory History: No Pertinent History Endocrine Medical History: Other Musculoskeletal History: No Pertinent History GI Medical History: No Pertinent History History: No Pertinent History Psycho-Social History: No Pertinent History Female Reproductive Disorders: No Pertinent History Other Medical History: pt had gestational diabetes with and preclampsia induced and del at 37 weeks - Past Surgical History Past Surgical History: Yes Neuro Surgical History: No Pertinent History Cardiac: No Pertinent History Respiratory: No Pertinent History Gastrointestinal: No Pertinent History Genitourinary: No Pertinent History Musculoskeletal: No Pertinent History Female Surgical History: Dilation & Curettage Other Surgical History: D&C - Social History Smoking Status: Never smoker Exposure to second hand smoke: No Alcohol Use: None Drug Use: none Patient Lives Alone: No Significant Family History: no pertinent family hx - Female History Hx Last Menstrual Period: 3 weeks ago Hx Now: No - Nursing Vital Signs Nursing Vital Signs: Initial Vital Signs Temperature 97.5 F 09/15/18 08:19 Pulse Rate 81 09/15/18 08:19 Respiratory Rate 18 09/15/18 08:19 Blood Pressure 130/79 09/15/18 08:19 O2 Sat by Pulse Oximetry 99 09/15/18 08:19 Pain Scale Pain Intensity 7 - Physical Exam SpO2: 99 - Course Nursing assessment & vital signs reviewed: Yes Ordered Tests: Active Orders 24 hr Category Date Time Status IV Insertion STAT Care 09/15/18 08:29 Active HCG QUALITATIVE,SERUM Stat Lab 09/15/18 08:49 Completed Medication Summary Discontinued Medications Generic Name Dose Route Start Last Admin Trade Name Damionq PRN Reason Stop Dose Admin Diphenhydramine HCl 25 mg 09/15/18 08:29 09/15/18 08:46 Benadryl 50 Mg/Ml IV 09/15/18 08:30 25 mg STAT ONE Administration Diphenhydramine HCl Confirm 09/15/18 08:33 Benadryl 50 Mg/Ml Administered 09/15/18 08:34 Dose 50 mg .ROUTE .STK-MED ONE Metoclopramide HCl 10 mg 09/15/18 08:29 09/15/18 08:46 Reglan 10 Mg/2 Ml IV 09/15/18 08:30 10 mg STAT ONE Administration Metoclopramide HCl Confirm 09/15/18 08:34 Reglan 10 Mg/2 Ml Administered 09/15/18 08:35 Dose 10 mg .ROUTE .STK-MED ONE Lab/Rad Data: Laboratory Results 09/15/18 Range/Units 08:49 Serum , Qual NEGATIVE (Negative) - Progress Progress: improved Progress Note: 09/15/18 09:19 Patient states she is feeling markedly better after receiving IV Benadryl and Reglan. Vitals are stable. Will discharge patient. - Departure Time of Disposition: 09:20 Departure Disposition: Home Clinical Impression: Migraine Qualifiers: Migraine type: unspecified Status migrainosus presence: without status migrainosus Intractability: not intractable Qualified Code(s): G43.909 - Migraine, unspecified, not intractable, without status migrainosus Condition: Fair Critical Care Time: No Referrals: DANO FINCH [Primary Care Provider] - Additional Instructions: Return home. Rest in a dark quiet room. Follow-up with your family doctor if symptoms are recurrent. Return for acute distress or for severe symptoms.
[2018-09-15] MEDS ORDERED: Reglan 10 MG/2 ML ONE (08:34)
[2018-09-15 10:02] VITALS: BP 118/64; PULSE 90; O2SAT 100
== END 2018-09-15 10:05 | disposition home or self-care (01) ==
LOC: ED 08:12
DX: G43.909 Migraine, unspecified, not intractable, without status migrainosus (principal)
CPT/HCPCS: 36000; 36415; 81025; 96374; 96375; 99284; J1200

== ENCOUNTER 2019-03-12 06:33 | Emergency (ER) | payer BC ==
[2019-03-12 07:00] VITALS: O2SAT 97
--- NOTE | 2019-03-12 07:25 | ERPHSYRPT ---
- History of Present Illness Time Seen by Provider: 03/12/19 07:10 Source: patient Exam Limitations: no limitations Patient Subjective Stated Complaint: PT IS ALERT AND ORIENTED. PT IS AMBULATORY WITH A STEADY GAIT. PT COMES IN WITH C/O MIGRAINE HEADACHE. PT STATES THAT SHE GETS MIGRAINES 2-3X PER WEEK BUT IS UNABLE TO AFFORD HER MEDICATIONS. PT DENIES DIZZINESS OR LIGHTHEADEDNESS. PT STATES SHE IS VERY NAUSEOUS BUT HAS NOT VOMITTED. PT PERRLA. Triage Nursing Assessment: SEE ABOVE Physician History: 28 y/o white female with h/o migraine headaches presents with similar headache since yesterday afternoon. pt not currently on any medication because pt switched doctors. the new doctor prescribed too expensive a medication. not the worst headache she has ever had. denies head injury Timing/Duration: day(s) (1) Head Pain Location: global Severity of Pain-Max: moderate Severity of Pain-Current: moderate Recent Head Trauma: no recent headache/trauma Modifying Factors: Improves With: exposure to light, noise Associated Symptoms: nausea/vomiting, sensitive to light Previous symptoms: same symptoms as today Allergies/Adverse Reactions: No Known Drug Allergies Allergy (Verified 09/15/18 08:24) Home Medications: Fluticasone Propionate [Flonase Allergy Relief] 9.9 ml IH UD 03/12/19 [History] Loratadine 10 mg [Claritin 10 mg] 10 mg PO DAILY 03/12/19 [History] Hx Tetanus, Diphtheria Vaccination/Date Given: No Hx Influenza Vaccination/Date Given: No Hx Pneumococcal Vaccination/Date Given: No Immunizations Up to Date: Yes - Review of Systems Constitutional: No Symptoms Eyes: Photophobia Ears, Nose, & Throat: No Symptoms Respiratory: No Symptoms Cardiac: No Symptoms Abdominal/Gastrointestinal: No Symptoms Genitourinary Symptoms: No Symptoms Musculoskeletal: No Symptoms Skin: No Symptoms Neurological: Headache Psychological: No Symptoms Endocrine: No Symptoms Hematologic/Lymphatic: No Symptoms Immunological/Allergic: No Symptoms All Other Systems: Reviewed and Negative - Past Medical History Pertinent Past Medical History: Yes Neurological History: Migraines ENT History: No Pertinent History Cardiac History: No Pertinent History Respiratory History: No Pertinent History Endocrine Medical History: Other Musculoskeletal History: No Pertinent History GI Medical History: No Pertinent History History: No Pertinent History Psycho-Social History: No Pertinent History Female Reproductive Disorders: No Pertinent History Other Medical History: pt had gestational diabetes with and preclampsia induced and del at 37 weeks - Past Surgical History Past Surgical History: Yes Neuro Surgical History: No Pertinent History Cardiac: No Pertinent History Respiratory: No Pertinent History Gastrointestinal: No Pertinent History Genitourinary: No Pertinent History Musculoskeletal: No Pertinent History Female Surgical History: Dilation & Curettage Other Surgical History: D&C - Social History Smoking Status: Never smoker Exposure to second hand smoke: No Alcohol Use: None Drug Use: none Patient Lives Alone: No Significant Family History: no pertinent family hx - Female History Hx Last Menstrual Period: 03/12/19 Hx Now: No - Nursing Vital Signs Nursing Vital Signs: Initial Vital Signs Temperature 98.0 F 03/12/19 06:33 Pulse Rate 89 03/12/19 06:33 Respiratory Rate 18 03/12/19 06:33 Blood Pressure 117/81 03/12/19 06:33 O2 Sat by Pulse Oximetry 97 03/12/19 06:33 Pain Scale Pain Intensity 7 - Physical Exam General Appearance: no apparent distress Eye Exam: PERRL/EOMI Ears, Nose, Throat Exam: normal ENT inspection Neck Exam: normal inspection Respiratory Exam: No chest tenderness Gastrointestinal/Abdominal Exam: No tenderness Back Exam: normal inspection, normal range of motion, No CVA tenderness, No vertebral tenderness Extremity Exam: normal inspection, normal range of motion, pelvis stable 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, 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, 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 Exam: normal hearing, normal speech, PERRL Coordination/Gait Exam: normal finger to nose, normal gait, normal cerebellar function Motor/Sensory Exam: no motor deficit, no sensory deficit, no pronator drift Skin Exam: normal color, warm, dry Lymphatic Exam: No adenopathy SpO2 Interpretation: normal SpO2: 97 O2 Delivery: Room Air - Course Nursing assessment & vital signs reviewed: Yes - Progress Progress: unchanged Air Movement: good Blood Culture(s) Obtained: No Antibiotics given: No Counseled pt/family regarding: diagnosis, need for follow-up - Departure Departure Disposition: Home Clinical Impression: Migraine headache Condition: Stable Critical Care Time: No Referrals: ALESSANDRO ROCHA [Primary Care Provider] - Additional Instructions: follow up with primary doctor for further management.
[2019-03-12] MEDS ORDERED: Phenergan 25 MG INJ ONE (07:30)
[2019-03-12] MEDS ORDERED: DEMEROL 50 MG ONE (07:30)
[2019-03-12] MEDS: Phenergan 25 MG INJ IM ONE (07:33)
[2019-03-12] MEDS: DEMEROL 50 MG IM ONE (07:33)
[2019-03-12 07:41] VITALS: BP 126/80; PULSE 79
== END 2019-03-12 08:19 | disposition home or self-care (01) ==
LOC: ED 06:33
DX: G43.909 Migraine, unspecified, not intractable, without status migrainosus (principal)
CPT/HCPCS: 96372; 99284; J2175; J2550

== ENCOUNTER 2019-05-16 15:00 | Emergency (ER) | payer BC ==
[2019-05-16] MEDS ORDERED: TORAdol 30 mg Injection IM ONE (15:19)
[2019-05-16] MEDS ORDERED: Norflex 60 MG/2 ML IM ONE (15:20)
[2019-05-16] MEDS ORDERED: Norflex 60 MG/2 ML ONE (15:22)
[2019-05-16] MEDS ORDERED: TORAdol 30 mg Injection ONE (15:22)
--- NOTE | 2019-05-16 15:25 | ERPHSYRPT ---
- History of Present Illness Time Seen by Provider: 05/16/19 15:23 Source: patient Exam Limitations: no limitations Patient Subjective Stated Complaint: Pt states that she has had a migraine for the past 2 days with no relief, denies vomiting but she is nauseous Triage Nursing Assessment: Pt walked into the ER, vitals wnl, rates pain 6/10, pulses normal, no difficulties with strength, PERRL, nauseous Physician History: Pt states that she has had a migraine for the past 2 days with no relief, denies vomiting but she is nauseous Timing/Duration: day(s) (two days) Quality: aching Head Pain Location: frontal Severity of Pain-Max: severe Severity of Pain-Current: moderate Recent Head Trauma: frequent headaches Associated Symptoms: nausea/vomiting, sensitive to light Previous symptoms: same symptoms as today Allergies/Adverse Reactions: No Known Drug Allergies Allergy (Verified 05/16/19 15:06) Home Medications: SUMAtriptan [Sumatriptan] 1 spray INTRANASAL UD PRN 05/16/19 [History] Hx Tetanus, Diphtheria Vaccination/Date Given: No Hx Influenza Vaccination/Date Given: No Hx Pneumococcal Vaccination/Date Given: No - Review of Systems Constitutional: No Symptoms Eyes: No Symptoms Ears, Nose, & Throat: No Symptoms Respiratory: No Symptoms Cardiac: No Symptoms Abdominal/Gastrointestinal: Nausea, No Vomiting Genitourinary Symptoms: No Symptoms Musculoskeletal: No Symptoms Skin: No Symptoms Neurological: Headache Psychological: No Symptoms Endocrine: No Symptoms - Past Medical History Pertinent Past Medical History: Yes Neurological History: Migraines ENT History: No Pertinent History Cardiac History: No Pertinent History Respiratory History: No Pertinent History Endocrine Medical History: Other Musculoskeletal History: No Pertinent History GI Medical History: No Pertinent History History: No Pertinent History Psycho-Social History: No Pertinent History Female Reproductive Disorders: No Pertinent History Other Medical History: pt had gestational diabetes with and preclampsia induced and del at 37 weeks - Past Surgical History Past Surgical History: Yes Neuro Surgical History: No Pertinent History Cardiac: No Pertinent History Respiratory: No Pertinent History Gastrointestinal: No Pertinent History Genitourinary: No Pertinent History Musculoskeletal: No Pertinent History Female Surgical History: Dilation & Curettage Other Surgical History: D&C - Social History Smoking Status: Never smoker Exposure to second hand smoke: No Alcohol Use: None Drug Use: none Patient Lives Alone: No Significant Family History: no pertinent family hx - Female History Hx Last Menstrual Period: 05/03/2019 Hx Now: No - Nursing Vital Signs Nursing Vital Signs: Initial Vital Signs Temperature 98.8 F 05/16/19 15:06 Pulse Rate 83 05/16/19 15:06 Blood Pressure 130/82 05/16/19 15:06 O2 Sat by Pulse Oximetry 98 05/16/19 15:06 Pain Scale Pain Intensity 6 - Physical Exam General Appearance: moderate distress Eye Exam: PERRL/EOMI Ears, Nose, Throat Exam: normal ENT inspection Neck Exam: normal inspection Respiratory Exam: normal breath sounds Cardiovascular Exam: regular rate/rhythm Back Exam: normal inspection Extremity Exam: normal inspection 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, 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: normal speech, PERRL Motor/Sensory Exam: no motor deficit SpO2: 98 - Course Nursing assessment & vital signs reviewed: Yes Ordered Tests: Medication Summary Discontinued Medications Generic Name Dose Route Start Last Admin Trade Name Damionq PRN Reason Stop Dose Admin Ketorolac Tromethamine 60 mg 05/16/19 15:19 05/16/19 15:24 Toradol 30 Mg Injection IM 05/16/19 15:20 60 mg STAT ONE Administration Ketorolac Tromethamine Confirm 05/16/19 15:22 Toradol 30 Mg Injection Administered 05/16/19 15:23 Dose 60 mg .ROUTE .STK-MED ONE Nalbuphine HCl 10 mg 05/16/19 16:09 05/16/19 16:15 Nalbuphine Hcl 10 Mg/1 Ml Injection IM 05/16/19 16:10 10 mg STAT STA Administration Nalbuphine HCl Confirm 05/16/19 16:14 Nubain 10 Mg/Ml Administered 05/16/19 16:15 Dose 10 mg .ROUTE .STK-MED ONE Orphenadrine Citrate 60 mg 05/16/19 15:20 05/16/19 15:24 Norflex 60 Mg/2 Ml IM 05/16/19 15:21 60 mg STAT ONE Administration Orphenadrine Citrate Confirm 05/16/19 15:22 Norflex 60 Mg/2 Ml Administered 05/16/19 15:23 Dose 60 mg .ROUTE .STK-MED ONE Promethazine HCl 25 mg 05/16/19 16:09 10/06/19 16:14 Phenergan 25 Mg Inj IM 05/16/19 16:10 25 mg STAT ONE Administration Promethazine HCl Confirm 05/16/19 16:14 Phenergan 25 Mg Inj Administered 05/16/19 16:15 Dose 25 mg .ROUTE .STK-MED ONE - Progress Progress: improved Counseled pt/family regarding: diagnosis, need for follow-up - Departure Departure Disposition: Home Clinical Impression: Migraine Qualifiers: Migraine type: with aura Status migrainosus presence: without status migrainosus Intractability: intractable Qualified Code(s): G43.119 - Migraine with aura, intractable, without status migrainosus Condition: Stable Critical Care Time: No Referrals: ALESSANDRO ROCHA [Primary Care Provider] - Instructions: Headache, Adult (DC), Migraine Headache (DC) Additional Instructions: Discharge/Care Plan COMPA ZHANG was seen on 05/16/19 in the Emergency Room. The patient was counseled regarding Diagnosis,Lab results, Imaging studies, need for follow up and when to return to the Emergency Room. Prescriptions given: Discharge Note I have spoken with the patient and/or caregivers. I have explained the patient' s condition, diagnosis and treatment plan based on the information available to me at this time. I have answered the patient's and/or caregiver's questions and addressed any concerns. The patient and/or caregivers have as good understanding of the patient's diagnosis, condition and treatment plan as can be expected at this point. The vital signs have been stable. The patient's condition is stable and appropriate for discharge from the emergency department. The patient will pursue further outpatient evaluation with the primary care physician or other designated or consulting physician as outlined in the discharge instructions. The patient and/or caregivers are agreeable to this plan of care and follow-up instructions have been explained in detail. The patient and/or caregivers have received these instruction. The patient/and or caregivers are aware that any significant change in condition or worsening of symptoms should prompt an immediate return to this or the closest emergency department or call 911.
[2019-05-16] MEDS ORDERED: NALBUPHINE HCL 10 MG/1 ML INJECTION IM STA (16:09)
[2019-05-16] MEDS ORDERED: Phenergan 25 MG INJ IM ONE (16:09)
[2019-05-16] MEDS ORDERED: Nubain 10 MG/ML ONE (16:14)
[2019-05-16] MEDS ORDERED: Phenergan 25 MG INJ ONE (16:14)
[2019-05-16 16:56] VITALS: BP 113/73; PULSE 70; O2SAT 96
== END 2019-05-16 16:57 | disposition home or self-care (01) ==
LOC: ED 15:00
DX: G43.119 Migraine with aura, intractable, without status migrainosus (principal)
CPT/HCPCS: 96372; 99284; J1885; J2300; J2360; J2550

== ENCOUNTER 2019-11-23 13:06 | Emergency (ER) | payer BC ==
--- NOTE | 2019-11-23 13:20 | ERPHSYRPT ---
- History of Present Illness Time Seen by Provider: 11/23/19 13:19 Source: patient Exam Limitations: no limitations Physician History: This is a 29-year-old white female who has a history of migraine headaches. She presents with a recurrent migraine headache. This is her typical headache. She denies trauma. Used Imitrex this morning without any benefit. Also used [id number] pain medication which did not help. She has no visual changes. She does have some nausea but no vomiting. Timing/Duration: yesterday Quality: aching, throbbing Head Pain Location: global Severity of Pain-Max: moderate Severity of Pain-Current: moderate Recent Head Trauma: no recent headache/trauma, occasional headaches Modifying Factors: Improves With: noise Associated Symptoms: denies symptoms, No fever/chills, No stiff neck Previous symptoms: same symptoms as today Allergies/Adverse Reactions: No Known Drug Allergies Allergy (Verified 11/23/19 13:12) Home Medications: SUMAtriptan [Sumatriptan] 1 spray INTRANASAL UD PRN 05/16/19 [History] Hx Tetanus, Diphtheria Vaccination/Date Given: No Hx Influenza Vaccination/Date Given: No Hx Pneumococcal Vaccination/Date Given: No Travel Risk - International Travel Have you traveled outside of the country in past 3 weeks: No Have you or anyone close to you been diagnosed with or: No Do your reside in a community with a known COVID-19 case?: Yes If Yes where:: [facility] - Coronavirus Screening Has patient experienced Coronavirus symptoms: No - Review of Systems Constitutional: No Symptoms Eyes: No Symptoms Ears, Nose, & Throat: No Symptoms Respiratory: No Symptoms Cardiac: No Symptoms Abdominal/Gastrointestinal: Nausea Genitourinary Symptoms: No Symptoms Musculoskeletal: No Symptoms Skin: No Symptoms Neurological: Headache Psychological: No Symptoms Endocrine: No Symptoms Hematologic/Lymphatic: No Symptoms Immunological/Allergic: No Symptoms All Other Systems: Reviewed and Negative - Past Medical History Pertinent Past Medical History: Yes Neurological History: Migraines ENT History: No Pertinent History Cardiac History: No Pertinent History Respiratory History: No Pertinent History Endocrine Medical History: Other Musculoskeletal History: No Pertinent History GI Medical History: No Pertinent History History: No Pertinent History Psycho-Social History: No Pertinent History Female Reproductive Disorders: No Pertinent History Other Medical History: pt had gestational diabetes with and preclampsia induced and del at 37 weeks - Past Surgical History Past Surgical History: Yes Neuro Surgical History: No Pertinent History Cardiac: No Pertinent History Respiratory: No Pertinent History Gastrointestinal: No Pertinent History Genitourinary: No Pertinent History Musculoskeletal: No Pertinent History Female Surgical History: Dilation & Curettage Other Surgical History: D&C - Social History Smoking Status: Never smoker Exposure to second hand smoke: No Alcohol Use: None Drug Use: none Patient Lives Alone: No Significant Family History: no pertinent family hx - Nursing Vital Signs Nursing Vital Signs: Initial Vital Signs Temperature 98.4 F 11/23/19 13:13 Pulse Rate 87 11/23/19 13:13 Respiratory Rate 18 11/23/19 13:13 Blood Pressure 141/89 11/23/19 13:13 O2 Sat by Pulse Oximetry 99 11/23/19 13:13 Pain Scale Pain Intensity 7 - Physical Exam General Appearance: moderate distress, alert, anxiety, obese Eye Exam: PERRL/EOMI, eyes nml inspection Ears, Nose, Throat Exam: normal ENT inspection, moist mucous membranes Neck Exam: normal inspection, non-tender, supple, full range of motion Respiratory Exam: No chest tenderness Gastrointestinal/Abdominal Exam: No tenderness Back Exam: normal inspection, normal range of motion, No CVA tenderness, No vertebral tenderness Extremity Exam: normal inspection, normal range of motion, pelvis stable 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, 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, 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 Exam: normal hearing, normal speech, PERRL Motor/Sensory Exam: no motor deficit, no sensory deficit Skin Exam: normal color, warm, dry Lymphatic Exam: No adenopathy SpO2 Interpretation: normal O2 Delivery: Room Air - Course Nursing assessment & vital signs reviewed: Yes Ordered Tests: Medication Summary Discontinued Medications Generic Name Dose Route Start Last Admin Trade Name Freq PRN Reason Stop Dose Admin Hydromorphone HCl 1 mg 11/23/19 13:32 Hydromorphone 1 Mg/Ml Ampule IM 11/23/19 13:33 STAT ONE Promethazine HCl 12.5 mg 11/23/19 13:32 Phenergan 25 Mg Inj IM 11/23/19 13:33 STAT ONE - Progress Progress: unchanged Air Movement: good Blood Culture(s) Obtained: No Antibiotics given: No Counseled pt/family regarding: diagnosis, need for follow-up - Departure Departure Disposition: Home Clinical Impression: Migraine headache Condition: Stable Critical Care Time: No Referrals: BOURGASSER,GENE A [Primary Care Provider] - Additional Instructions: Take your medication as prescribed. Follow-up with your primary care doctor or neurologist for further management.
[2019-11-23] MEDS ORDERED: Phenergan 25 MG INJ IM ONE (13:32)
[2019-11-23] MEDS ORDERED: Hydromorphone 1 mg/ml Ampule IM ONE (13:32)
[2019-11-23] MEDS ORDERED: Phenergan 25 MG INJ ONE (13:40)
[2019-11-23] MEDS ORDERED: Hydromorphone 1 mg/ml Ampule ONE (13:40)
[2019-11-23 14:30] VITALS: BP 113/94; PULSE 94; O2SAT 98
== END 2019-11-23 14:13 | disposition home or self-care (01) ==
LOC: ED 13:06
DX: G43.909 Migraine, unspecified, not intractable, without status migrainosus (principal)
CPT/HCPCS: 96372; 99284; J1170; J2550

== ENCOUNTER 2019-11-27 21:31 | Emergency (ER) | payer BC ==
--- NOTE | 2019-11-27 21:56 | ERPHSYRPT ---
- History of Present Illness Time Seen by Provider: 11/27/19 21:50 Source: patient Exam Limitations: no limitations Physician History: pt is 29 yr old female with long hx of migraine diagnosis planning to see new neurologist this week , She states that this is similar to her previous migraines but has run out of her proph meds and her sumatriptin is not working - seen also for same last week in ER and got good relief with 2 IM injections. denies trauma, has had prior imgaing and w/u witout pathology. no blood thinners or dyscrasias reported. Timing/Duration: day(s) Quality: throbbing Head Pain Location: frontal, temporal Severity of Pain-Max: moderate Severity of Pain-Current: moderate Recent Head Trauma: no recent headache/trauma, frequent headaches, chronic headaches Modifying Factors: Improves With: exposure to light Associated Symptoms: nausea/vomiting Previous symptoms: same symptoms as today, recently treated Allergies/Adverse Reactions: No Known Drug Allergies Allergy (Verified 11/23/19 13:12) Home Medications: SUMAtriptan [Sumatriptan] 1 spray INTRANASAL UD PRN 05/16/19 [History] Hx Tetanus, Diphtheria Vaccination/Date Given: No Hx Influenza Vaccination/Date Given: No Hx Pneumococcal Vaccination/Date Given: No Travel Risk - International Travel Have you traveled outside of the country in past 3 weeks: No (n) Have you or anyone close to you been diagnosed with or: No Do your reside in a community with a known COVID-19 case?: Yes If Yes where:: [facility] - Review of Systems Constitutional: No Fever, No Chills Eyes: No Symptoms Ears, Nose, & Throat: No Symptoms Respiratory: No Cough, No Dyspnea Cardiac: No Chest Pain, No Edema, No Syncope Abdominal/Gastrointestinal: No Abdominal Pain, No Nausea, No Vomiting, No Diarrhea Genitourinary Symptoms: No Dysuria Musculoskeletal: No Back Pain, No Neck Pain Skin: No Rash Neurological: No Dizziness, No Focal Weakness, No Sensory Changes Psychological: No Symptoms Endocrine: No Symptoms All Other Systems: Reviewed and Negative - Past Medical History Pertinent Past Medical History: Yes Neurological History: Migraines ENT History: No Pertinent History Cardiac History: No Pertinent History Respiratory History: No Pertinent History Endocrine Medical History: Other Musculoskeletal History: No Pertinent History GI Medical History: No Pertinent History History: No Pertinent History Psycho-Social History: No Pertinent History Female Reproductive Disorders: No Pertinent History Other Medical History: pt had gestational diabetes with and preclampsia induced and del at 37 weeks - Past Surgical History Past Surgical History: Yes Neuro Surgical History: No Pertinent History Cardiac: No Pertinent History Respiratory: No Pertinent History Gastrointestinal: No Pertinent History Genitourinary: No Pertinent History Musculoskeletal: No Pertinent History Female Surgical History: Dilation & Curettage Other Surgical History: D&C - Social History Smoking Status: Never smoker Exposure to second hand smoke: No Alcohol Use: None Drug Use: none Patient Lives Alone: No Significant Family History: no pertinent family hx - Nursing Vital Signs Nursing Vital Signs: Initial Vital Signs Temperature 97.9 F 11/27/19 21:41 Pulse Rate 80 11/27/19 21:41 Respiratory Rate 16 11/27/19 21:41 Blood Pressure 135/94 11/27/19 21:41 O2 Sat by Pulse Oximetry 99 11/27/19 21:41 Pain Scale Pain Intensity 9 - Physical Exam General Appearance: no apparent distress Eye Exam: PERRL/EOMI Ears, Nose, Throat Exam: normal ENT inspection, moist mucous membranes Neck Exam: normal inspection, supple, full range of motion, No meningismus Respiratory Exam: normal breath sounds, lungs clear Cardiovascular Exam: regular rate/rhythm, normal heart sounds Gastrointestinal/Abdominal Exam: soft, No tenderness, No distention Back Exam: normal inspection, normal range of motion 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, 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, 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 Exam: normal speech, PERRL, No facial droop Coordination/Gait Exam: normal cerebellar function Motor/Sensory Exam: no motor deficit, no sensory deficit Skin Exam: normal color, warm, dry, No rash - Course Nursing assessment & vital signs reviewed: Yes Ordered Tests: Medication Summary Discontinued Medications Generic Name Dose Route Start Last Admin Trade Name Freq PRN Reason Stop Dose Admin Diphenhydramine HCl 50 mg 11/27/19 21:57 11/27/19 22:08 Benadryl 50 Mg/Ml IV 11/27/19 21:58 50 mg STAT ONE Administration Diphenhydramine HCl Confirm 11/27/19 22:06 Benadryl 50 Mg/Ml Administered 11/27/19 22:07 Dose 50 mg .ROUTE .STK-MED ONE Ketorolac Tromethamine 30 mg 11/27/19 21:57 11/27/19 22:08 Toradol 30 Mg Injection IV 11/27/19 21:58 30 mg STAT ONE Administration Ketorolac Tromethamine Confirm 11/27/19 22:06 Toradol 30 Mg Injection Administered 11/27/19 22:07 Dose 30 mg .ROUTE .STK-MED ONE Metoclopramide HCl 10 mg 11/27/19 21:57 11/27/19 22:08 Reglan 10 Mg/2 Ml IV 11/27/19 21:58 10 mg STAT ONE Administration Metoclopramide HCl Confirm 11/27/19 22:06 Reglan 10 Mg/2 Ml Administered 11/27/19 22:07 Dose 10 mg .ROUTE .STK-MED ONE Ondansetron HCl 4 mg 11/27/19 21:57 11/27/19 22:08 Zofran 4 Mg/2 Ml Vial IV 11/27/19 21:58 4 mg STAT ONE Administration Ondansetron HCl Confirm 11/27/19 22:06 Zofran 4 Mg/2 Ml Vial Administered 11/27/19 22:07 Dose 4 mg .ROUTE .STK-MED ONE - Progress Progress: improved, re-examined Air Movement: good Progress Note: 11/27/19 22:33 improved after treatment and pt wishes DC to F/U PCP and neuro as planned Blood Culture(s) Obtained: No Antibiotics given: No Counseled pt/family regarding: diagnosis, need for follow-up - Departure Departure Disposition: Home Clinical Impression: Migraine Condition: Good Critical Care Time: No Referrals: ALESSANDRO ROCHA [Primary Care Provider] - Instructions: Migraines (DC) Additional Instructions: Continue with your plan to see Neurologist this week for definitive treatment strategy for your migraines - return meantime if further concerns.
[2019-11-27] MEDS ORDERED: TORAdol 30 mg Injection IV ONE (21:57)
[2019-11-27] MEDS ORDERED: Zofran 4 MG/2 ML VIAL IV ONE (21:57)
[2019-11-27] MEDS ORDERED: BENADRYL 50 MG/ML IV ONE (21:57)
[2019-11-27] MEDS ORDERED: Reglan 10 MG/2 ML IV ONE (21:57)
[2019-11-27] MEDS ORDERED: Zofran 4 MG/2 ML VIAL ONE (22:06)
[2019-11-27] MEDS ORDERED: Reglan 10 MG/2 ML ONE (22:06)
[2019-11-27] MEDS ORDERED: BENADRYL 50 MG/ML ONE (22:06)
[2019-11-27] MEDS ORDERED: TORAdol 30 mg Injection ONE (22:06)
[2019-11-27 22:34] VITALS: BP 113/83; PULSE 76; O2SAT 99
== END 2019-11-27 22:43 | disposition home or self-care (01) ==
LOC: ED 21:31
DX: G43.909 Migraine, unspecified, not intractable, without status migrainosus (principal); R11.2 Nausea with vomiting, unspecified
CPT/HCPCS: 36000; 96374; 96375; 99284; J1200; J1885; J2405

== ENCOUNTER 2020-01-26 21:48 | Emergency (ER) | payer BC ==
--- NOTE | 2020-01-26 22:08 | ERPHSYRPT ---
- History of Present Illness Time Seen by Provider: 01/26/20 22:05 Source: patient Exam Limitations: no limitations Physician History: Pt states she started with her typical migraine headache yesterday; sharp, constant and global. Pt c/o nausea today. Pt denies chest pain, weakness, numbness. last CT-HEAD was 2013 & wnl. Allergies/Adverse Reactions: No Known Drug Allergies Allergy (Verified 01/26/20 21:57) Home Medications: SUMAtriptan [Sumatriptan] 1 spray INTRANASAL UD PRN 05/16/19 [History] Amitriptyline HCl 25 mg PO HS 01/26/20 [History] Sumatriptan Succinate [Zembrace Symtouch] 0.5 ml SQ Q4-6HPRN PRN 01/26/20 [History] Hx Tetanus, Diphtheria Vaccination/Date Given: No Hx Influenza Vaccination/Date Given: No Hx Pneumococcal Vaccination/Date Given: No - Review of Systems Constitutional: No Fever, No Chills Respiratory: No Dyspnea Cardiac: No Chest Pain Abdominal/Gastrointestinal: Nausea, No Abdominal Pain, No Vomiting Neurological: Headache, No Focal Weakness, No Parasthesia All Other Systems: Reviewed and Negative - Past Medical History Pertinent Past Medical History: Yes Neurological History: Migraines ENT History: No Pertinent History Cardiac History: No Pertinent History Respiratory History: No Pertinent History Endocrine Medical History: Other Musculoskeletal History: No Pertinent History GI Medical History: No Pertinent History History: No Pertinent History Psycho-Social History: No Pertinent History Female Reproductive Disorders: No Pertinent History Other Medical History: pt had gestational diabetes with and preclampsia induced and del at 37 weeks - Past Surgical History Past Surgical History: Yes Neuro Surgical History: No Pertinent History Cardiac: No Pertinent History Respiratory: No Pertinent History Gastrointestinal: No Pertinent History Genitourinary: No Pertinent History Musculoskeletal: No Pertinent History Female Surgical History: Dilation & Curettage Other Surgical History: D&C - Social History Smoking Status: Never smoker Exposure to second hand smoke: No Alcohol Use: None Drug Use: none Patient Lives Alone: No Significant Family History: no pertinent family hx - Nursing Vital Signs Nursing Vital Signs: Initial Vital Signs Temperature 97.7 F 01/26/20 21:57 Pulse Rate 88 01/26/20 21:57 Respiratory Rate 14 01/26/20 21:57 Blood Pressure 142/77 01/26/20 21:57 O2 Sat by Pulse Oximetry 98 01/26/20 21:57 Pain Scale Pain Intensity 8 - Physical Exam General Appearance: alert Eye Exam: PERRL/EOMI Ears, Nose, Throat Exam: TMs normal, pharynx normal, moist mucous membranes Neck Exam: normal inspection Respiratory Exam: normal breath sounds Cardiovascular Exam: normal heart sounds Gastrointestinal/Abdominal Exam: soft, normal bowel sounds Back Exam: normal range of motion Extremity Exam: normal range of motion 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, 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 Exam: normal speech, PERRL Motor/Sensory Exam: no motor deficit, no sensory deficit, negative Babinski's sign Skin Exam: warm, dry SpO2 Interpretation: normal SpO2: 98 O2 Delivery: Room Air - Course Nursing assessment & vital signs reviewed: Yes - CT Exams Head CT Interpretation: Tele-radiologist Report (see report) Ordered Tests: Active Orders 24 hr Category Date Time Status HEAD WITHOUT CONTRAST [CT] Stat Exams 01/26/20 22:38 Taken Medication Summary Discontinued Medications Generic Name Dose Route Start Last Admin Trade Name Francia PRN Reason Stop Dose Admin Fentanyl Citrate 100 mcg 01/26/20 22:20 01/26/20 22:26 Sublimaze 100 Mcg/2 Ml IM 01/26/20 22:21 100 mcg STAT ONE Administration Fentanyl Citrate Confirm 01/26/20 22:22 Sublimaze 100 Mcg/2 Ml Administered 01/26/20 22:23 Dose 100 mcg .ROUTE .STK-MED ONE Promethazine HCl 50 mg 01/26/20 22:20 01/26/20 22:26 Phenergan 25 Mg Inj IM 01/26/20 22:21 50 mg STAT ONE Administration Promethazine HCl Confirm 01/26/20 22:22 Phenergan 25 Mg Inj Administered 01/26/20 22:23 Dose 50 mg .ROUTE .STK-MED ONE - Progress Progress: improved Counseled pt/family regarding: rad results - Departure Departure Disposition: Home Clinical Impression: Migraine headache, Sinusitis Condition: Stable Critical Care Time: No Referrals: ALESSANDRO ROCHA [Primary Care Provider] - Instructions: Headache, Adult (DC) Additional Instructions: Follow up with private doctor tomorrow. Prescriptions: Azithromycin 250 mg [Zithromax 250 MG TABLET] 250 mg PO ZPACK #6 tablet
[2020-01-26] MEDS ORDERED: Phenergan 25 MG INJ IM ONE (22:20)
[2020-01-26] MEDS ORDERED: SUBLIMAZE 100 MCG/2 ML IM ONE (22:20)
[2020-01-26] MEDS ORDERED: SUBLIMAZE 100 MCG/2 ML ONE (22:22)
[2020-01-26] MEDS ORDERED: Phenergan 25 MG INJ ONE (22:22)
[2020-01-26] MEDS ORDERED: TORAdol 30 mg Injection IM ONE (23:58)
[2020-01-26] MEDS ORDERED: TORAdol 30 mg Injection ONE (23:59)
[2020-01-27 00:12] VITALS: BP 135/92; PULSE 81; O2SAT 100
--- NOTE | 2020-01-27 08:34 | XRAY ---
Indication: Headache. History of migraine headache. Multiple contiguous axial images obtained through the head without contrast. Comparison: July 18, 2017. Again normal appearing brain parenchyma, ventricles, and bony calvarium. There remains mild/moderate mucosal thickening of the paranasal sinuses bilaterally with now tiny bilateral maxillary sinus fluid leveling. Mastoid air cells are clear. Impression: Pansinusitis. Remaining CT head without contrast exam. Comment: Preliminary interpretation was made by [facility]. No critical discrepancy.
== END 2020-01-27 00:13 | disposition home or self-care (01) ==
LOC: ED 21:48
DX: G43.909 Migraine, unspecified, not intractable, without status migrainosus (principal); J32.9 Chronic sinusitis, unspecified; Z79.891 Long term (current) use of opiate analgesic
CPT/HCPCS: 70450; 96372; 99284; J1885; J2550; J3010

== ENCOUNTER 2020-07-02 00:45 | Emergency (ER) | payer BC ==
[2020-07-02 01:13] VITALS: O2SAT 98
[2020-07-02] MEDS ORDERED: TORAdol 30 mg Injection IM ONE (01:15)
[2020-07-02] MEDS ORDERED: Phenergan 25 MG INJ IM ONE (01:15)
--- NOTE | 2020-07-02 01:15 | ERPHSYRPT ---
- History of Present Illness Time Seen by Provider: 07/02/20 01:13 Source: patient Exam Limitations: no limitations Patient Subjective Stated Complaint: Patient states " I have had a headache/migraine since yesterday around 0400 and I have tried everything to get rid of it and it hasn't worked". Triage Nursing Assessment: Patient arrived to ER via driving. Patient A/O times 4. Patient able to follow comands without difficulty. Bilateral pupils brisk and reactive to light. Bilateral hand collet driller strong and equal. Patient denies vomiting. Patient states she has had nausea all day. No complaints of dizziness. No complaints of lightheadiness. Patient denies SOB/chest pain. Lungs clear bilateral A/P throughout. Apical pulse strong and regular after auscultation. + radial pulses bilateral. + pedal pulses bilateral. No dependent edema noted. + BS times 4 quads. ROM to all extremities WNL. Physician History: 89-year-old female came to the emergency room with sudden onset of migraine headache started approximately 12 hours ago. Patient tried sumatriptan nasal spray and Excedrin without any help. Patient complains of photophobia and nausea. Patient has this type of migraine since her age 7. She denies any other symptoms. Timing/Duration: today Quality: aching Head Pain Location: frontal, temporal Severity of Pain-Max: moderate Severity of Pain-Current: moderate Recent Head Trauma: frequent headaches Modifying Factors: Improves With: medication Associated Symptoms: denies symptoms Previous symptoms: same symptoms as today Allergies/Adverse Reactions: No Known Drug Allergies Allergy (Verified 07/02/20 01:13) Home Medications: No Reportable Medications [No Reported Medications] 07/02/20 [History] Hx Tetanus, Diphtheria Vaccination/Date Given: Yes Hx Influenza Vaccination/Date Given: No Hx Pneumococcal Vaccination/Date Given: No Immunizations Up to Date: Yes Travel Risk - International Travel Have you traveled outside of the country in past 3 weeks: No - Coronavirus Screening Are you exhibiting any of the following symptoms?: No Close contact with a COVID-19 positive Pt in past 14-21 Days: No - Review of Systems Constitutional: No Fever, No Chills Eyes: No Symptoms Ears, Nose, & Throat: No Symptoms Respiratory: No Cough, No Dyspnea Cardiac: No Chest Pain, No Edema, No Syncope Abdominal/Gastrointestinal: No Abdominal Pain, No Nausea, No Vomiting, No Diarrhea Genitourinary Symptoms: No Dysuria Musculoskeletal: No Back Pain, No Neck Pain Skin: No Rash Neurological: Headache, No Dizziness, No Focal Weakness, No Sensory Changes Psychological: No Symptoms Endocrine: No Symptoms All Other Systems: Reviewed and Negative - Past Medical History Pertinent Past Medical History: Yes Neurological History: Migraines ENT History: No Pertinent History Cardiac History: No Pertinent History Respiratory History: No Pertinent History Endocrine Medical History: Other Musculoskeletal History: No Pertinent History GI Medical History: No Pertinent History History: No Pertinent History Psycho-Social History: No Pertinent History Female Reproductive Disorders: No Pertinent History Other Medical History: pt had gestational diabetes with and preclampsia induced and del at 37 weeks - Past Surgical History Past Surgical History: Yes Neuro Surgical History: No Pertinent History Cardiac: No Pertinent History Respiratory: No Pertinent History Gastrointestinal: No Pertinent History Genitourinary: No Pertinent History Musculoskeletal: No Pertinent History Female Surgical History: Dilation & Curettage Other Surgical History: D&C - Social History Smoking Status: Never smoker Exposure to second hand smoke: No Alcohol Use: None Drug Use: none Patient Lives Alone: No Significant Family History: no pertinent family hx - Female History Hx Last Menstrual Period: 06/15/20 Hx Now: No - Nursing Vital Signs Nursing Vital Signs: Initial Vital Signs Temperature 98.6 F 07/02/20 01:10 Pulse Rate 97 H 07/02/20 01:10 Respiratory Rate 20 07/02/20 01:10 Blood Pressure 102/70 07/02/20 01:10 O2 Sat by Pulse Oximetry 98 07/02/20 01:10 Pain Scale Pain Intensity 5 - Physical Exam General Appearance: no apparent distress Eye Exam: PERRL/EOMI Ears, Nose, Throat Exam: normal ENT inspection, moist mucous membranes Neck Exam: normal inspection, supple, full range of motion, No meningismus Respiratory Exam: normal breath sounds, lungs clear Cardiovascular Exam: regular rate/rhythm, normal heart sounds Gastrointestinal/Abdominal Exam: soft, No tenderness, No distention Back Exam: normal inspection, normal range of motion 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, 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, 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 Exam: normal speech, PERRL, No facial droop Coordination/Gait Exam: normal cerebellar function Motor/Sensory Exam: no motor deficit, no sensory deficit Skin Exam: normal color, warm, dry, No rash - Course Nursing assessment & vital signs reviewed: Yes Ordered Tests: Medication Summary Discontinued Medications Generic Name Dose Route Start Last Admin Trade Name Francai PRN Reason Stop Dose Admin Ketorolac Tromethamine 60 mg 07/02/20 01:15 07/02/20 01:23 Toradol 30 Mg Injection IM 07/02/20 01:16 60 mg STAT ONE Administration Ketorolac Tromethamine Confirm 07/02/20 01:20 Toradol 30 Mg Injection Administered 07/02/20 01:21 Dose 60 mg .ROUTE .STK-MED ONE Nalbuphine HCl 10 mg 07/02/20 01:41 07/02/20 02:03 Nalbuphine Hcl 10 Mg/1 Ml Injection IM 07/02/20 01:42 10 mg STAT STA Administration Nalbuphine HCl Confirm 07/02/20 01:59 Nubain 10 Mg/Ml Administered 07/02/20 02:00 Dose 10 mg .ROUTE .STK-MED ONE Ondansetron HCl 4 mg 07/02/20 01:41 07/02/20 02:01 Zofran 4 Mg/2 Ml Vial IM 07/02/20 01:42 4 mg STAT ONE Administration Ondansetron HCl Confirm 07/02/20 01:58 Zofran 4 Mg/2 Ml Vial Administered 07/02/20 01:59 Dose 4 mg .ROUTE .STK-MED ONE Promethazine HCl 25 mg 07/02/20 01:15 07/02/20 01:24 Phenergan 25 Mg Inj IM 07/02/20 01:16 25 mg STAT ONE Administration Promethazine HCl Confirm 07/02/20 01:20 Phenergan 25 Mg Inj Administered 07/02/20 01:21 Dose 25 mg .ROUTE .STK-MED ONE - Progress Progress: improved, re-examined Air Movement: good Counseled pt/family regarding: diagnosis, need for follow-up - Departure Departure Disposition: Home Clinical Impression: Migraine Qualifiers: Migraine type: chronic without aura Status migrainosus presence: without status migrainosus Intractability: intractable Qualified Code(s): G43.719 - Chronic migraine without aura, intractable, without status migrainosus Condition: Stable Critical Care Time: No Referrals: ALESSANDRO ROCHA [Primary Care Provider] - Instructions: Migraines (DC)
[2020-07-02] MEDS ORDERED: TORAdol 30 mg Injection ONE (01:20)
[2020-07-02] MEDS ORDERED: Phenergan 25 MG INJ ONE (01:20)
[2020-07-02] MEDS ORDERED: Zofran 4 MG/2 ML VIAL IM ONE (01:41)
[2020-07-02] MEDS ORDERED: NALBUPHINE HCL 10 MG/1 ML INJECTION IM STA (01:41)
[2020-07-02] MEDS ORDERED: Zofran 4 MG/2 ML VIAL ONE (01:58)
[2020-07-02] MEDS ORDERED: Nubain 10 MG/ML ONE (01:59)
[2020-07-02 02:04] VITALS: BP 131/81; PULSE 79
== END 2020-07-02 02:43 | disposition home or self-care (01) ==
LOC: ED 00:45
DX: G43.909 Migraine, unspecified, not intractable, without status migrainosus (principal)
CPT/HCPCS: 96372; 99284; J1885; J2300; J2405; J2550

== ENCOUNTER 2020-09-09 14:12 | Emergency (ER) | payer BC ==
[2020-09-09 14:39] VITALS: O2SAT 99
[2020-09-09] MEDS ORDERED: Hydromorphone 1 mg/ml Injection IM ONE (14:43)
[2020-09-09] MEDS ORDERED: Phenergan 25 MG INJ IM ONE (14:43)
[2020-09-09] MEDS ORDERED: Hydromorphone 1 mg/ml Injection ONE (14:47)
[2020-09-09] MEDS ORDERED: Phenergan 25 MG INJ ONE (14:47)
--- NOTE | 2020-09-09 15:01 | ERPHSYRPT ---
- History of Present Illness Time Seen by Provider: 09/09/20 14:35 Source: patient Exam Limitations: no limitations Patient Subjective Stated Complaint: Headache Triage Nursing Assessment: Patient ambulated into ED and transferred self to bed. Patient A+O X3. Patient's skin pink, warm and dry. Patient complains of headache that started yesterday and not relieved with OTC pain med. Patient complains of right sided headache constant throbbing pain 7/10. Patient denies head injury or trauma. Patient has hx of migraines. Patient also complains of nausea. Physician History: This is a 30-year-old white female who has a history of recurrent migraine headaches and presents with a 2-day history of her typical migraine headache. She denies any trauma. She did not use her Imitrex. She has been using [id number] medications and they are not helping. Patient states that she saw her neurologist in July 2020 via a telemedicine visit. She states that her physicians feel that she might have migraine headache secondary to sinus issues and has a sinus surgery scheduled for next week. Patient denies trauma to her head. Timing/Duration: yesterday Quality: aching Head Pain Location: frontal, temporal (Are the typical areas of her migraine headaches), parietal Severity of Pain-Max: moderate Severity of Pain-Current: moderate Recent Head Trauma: no recent headache/trauma, occasional headaches Modifying Factors: Improves With: exposure to light, noise Associated Symptoms: nausea/vomiting, sensitive to light, No confusion, No fever/chills, No stiff neck, No visual disturbance Previous symptoms: recent hospitalization Allergies/Adverse Reactions: No Known Drug Allergies Allergy (Verified 09/09/20 14:39) Home Medications: No Reportable Medications [No Reported Medications] 07/02/20 [History] Hx Tetanus, Diphtheria Vaccination/Date Given: Yes Hx Influenza Vaccination/Date Given: Yes Hx Pneumococcal Vaccination/Date Given: No Immunizations Up to Date: Yes Travel Risk - International Travel Have you traveled outside of the country in past 3 weeks: No - Coronavirus Screening Are you exhibiting any of the following symptoms?: No Close contact with a COVID-19 positive Pt in past 14-21 Days: No - Review of Systems Constitutional: No Symptoms Eyes: No Symptoms Ears, Nose, & Throat: No Symptoms Respiratory: No Symptoms Cardiac: No Symptoms Abdominal/Gastrointestinal: No Symptoms Genitourinary Symptoms: No Symptoms Musculoskeletal: No Symptoms Skin: No Symptoms Neurological: No Symptoms Psychological: No Symptoms Endocrine: No Symptoms Hematologic/Lymphatic: No Symptoms Immunological/Allergic: No Symptoms All Other Systems: Reviewed and Negative - Past Medical History Pertinent Past Medical History: Yes Neurological History: Migraines ENT History: No Pertinent History Cardiac History: No Pertinent History Respiratory History: No Pertinent History Endocrine Medical History: Other Musculoskeletal History: No Pertinent History GI Medical History: No Pertinent History History: No Pertinent History Psycho-Social History: No Pertinent History Female Reproductive Disorders: No Pertinent History Other Medical History: pt had gestational diabetes with and precla mpsia induced and del at 37 weeks - Past Surgical History Past Surgical History: Yes Neuro Surgical History: No Pertinent History Cardiac: No Pertinent History Respiratory: No Pertinent History Gastrointestinal: No Pertinent History Genitourinary: No Pertinent History Musculoskeletal: No Pertinent History Female Surgical History: Dilation & Curettage Other Surgical History: D&C - Social History Smoking Status: Never smoker Exposure to second hand smoke: No Alcohol Use: None Drug Use: none Patient Lives Alone: No Significant Family History: no pertinent family hx - Female History Hx Last Menstrual Period: last month Hx Now: No - Nursing Vital Signs Nursing Vital Signs: Initial Vital Signs Temperature 98.0 F 09/09/20 14:32 Pulse Rate 85 09/09/20 14:32 Respiratory Rate 18 09/09/20 14:32 Blood Pressure 156/98 09/09/20 14:32 O2 Sat by Pulse Oximetry 99 09/09/20 14:32 Pain Scale Pain Intensity 7 - Physical Exam General Appearance: mild distress, alert, anxiety, obese Eye Exam: PERRL/EOMI, eyes nml inspection Ears, Nose, Throat Exam: normal ENT inspection, moist mucous membranes Neck Exam: normal inspection, non-tender, supple, full range of motion Respiratory Exam: airway intact, No chest tenderness, No respiratory distress Gastrointestinal/Abdominal Exam: No tenderness Back Exam: normal inspection, normal range of motion, No CVA tenderness, No vertebral tenderness Extremity Exam: normal inspection, normal range of motion, pelvis stable 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, 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, 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 Exam: normal hearing, normal speech, PERRL, tongue midline Coordination/Gait Exam: normal finger to nose, normal gait, normal cerebellar function Skin Exam: normal color, warm, dry Lymphatic Exam: No adenopathy SpO2 Interpretation: normal SpO2: 99 O2 Delivery: Room Air - Course Nursing assessment & vital signs reviewed: Yes Ordered Tests: Medication Summary Discontinued Medications Generic Name Dose Route Start Last Admin Trade Name Francia PRMitchell Reason Stop Dose Admin Hydromorphone HCl 1 mg 09/09/20 14:43 09/09/20 14:50 Hydromorphone 1 Mg/Ml Injection IM 09/09/20 14:44 1 mg STAT ONE Administration Hydromorphone HCl Confirm 09/09/20 14:47 Hydromorphone 1 Mg/Ml Injection Administered 09/09/20 14:48 Dose 1 mg .ROUTE .STK-MED ONE Promethazine HCl 25 mg 09/09/20 14:43 09/09/20 14:49 Phenergan 25 Mg Inj IM 09/09/20 14:44 25 mg STAT ONE Administration Promethazine HCl Confirm 09/09/20 14:47 Phenergan 25 Mg Inj Administered 09/09/20 14:48 Dose 25 mg .ROUTE .STK-MED ONE - Progress Progress: improved Air Movement: good Blood Culture(s) Obtained: No Antibiotics given: No Counseled pt/family regarding: diagnosis, need for follow-up - Departure Departure Disposition: Home Clinical Impression: Migraine headache Condition: Stable Critical Care Time: No Referrals: ALESSANDRO ROCHA [Primary Care Provider] - Additional Instructions: Keep your appointment for sinus surgery for next week. Call your neurologist on Friday to discuss your symptoms and for further management.
[2020-09-09 15:16] VITALS: BP 138/101; PULSE 78
== END 2020-09-09 15:17 | disposition home or self-care (01) ==
LOC: ED 14:12
DX: G43.909 Migraine, unspecified, not intractable, without status migrainosus (principal)
CPT/HCPCS: 96372; 99284; J1170; J2550

== ENCOUNTER 2020-11-25 15:06 | Emergency (ER) | payer BC ==
--- NOTE | 2020-11-25 15:09 | ERPHSYRPT ---
- History of Present Illness Time Seen by Provider: 11/25/20 15:09 Source: patient Exam Limitations: no limitations Physician History: This is a obese 30-year-old white female with a history of recurrent, chronic migraine headaches. She has a recurrence of her same type of migraine headache that occurred approximately 5:00 this morning. Despite Excedrin medication, her migraine headache is worsened. She has not had any head trauma. She is no longer on any migraine headache medicine. She was told to stop this medication after she had nasal polyp surgery in September 2020 to see if this helped resolve her headaches. The procedure has not resolved her chronic migraine headaches. Patient was here in August 2020 and was given intramuscular injection of Dilaudid which helped resolve her headache. Timing/Duration: today Quality: aching, throbbing Head Pain Location: global Severity of Pain-Max: moderate Severity of Pain-Current: moderate Recent Head Trauma: no recent headache/trauma, chronic headaches Modifying Factors: Improves With: exposure to light, noise Associated Symptoms: denies symptoms Previous symptoms: same symptoms as today Allergies/Adverse Reactions: No Known Drug Allergies Allergy (Verified 11/25/20 15:19) Home Medications: No Reportable Medications [No Reported Medications] 07/02/20 [History] Hx Tetanus, Diphtheria Vaccination/Date Given: Yes Hx Influenza Vaccination/Date Given: Yes Hx Pneumococcal Vaccination/Date Given: No Travel Risk - International Travel Have you traveled outside of the country in past 3 weeks: No - Coronavirus Screening Are you exhibiting any of the following symptoms?: No Close contact with a COVID-19 positive Pt in past 14-21 Days: No - Vaccine Status Have you recieved a Covid-19 vaccination: No - Review of Systems Constitutional: No Symptoms Eyes: No Symptoms Ears, Nose, & Throat: No Symptoms Respiratory: No Symptoms Cardiac: No Symptoms Abdominal/Gastrointestinal: No Symptoms Genitourinary Symptoms: No Symptoms Musculoskeletal: No Symptoms Skin: No Symptoms Neurological: Headache Psychological: No Symptoms Endocrine: No Symptoms Hematologic/Lymphatic: No Symptoms Immunological/Allergic: No Symptoms All Other Systems: Reviewed and Negative - Past Medical History Pertinent Past Medical History: Yes Neurological History: Migraines ENT History: No Pertinent History Cardiac History: No Pertinent History Respiratory History: No Pertinent History Endocrine Medical History: Other Musculoskeletal History: No Pertinent History GI Medical History: No Pertinent History History: No Pertinent History Psycho-Social History: No Pertinent History Female Reproductive Disorders: No Pertinent History Other Medical History: pt had gestational diabetes with and preclampsia induced and del at 37 weeks - Past Surgical History Past Surgical History: Yes Neuro Surgical History: No Pertinent History Cardiac: No Pertinent History Respiratory: No Pertinent History Gastrointestinal: No Pertinent History Genitourinary: No Pertinent History Musculoskeletal: No Pertinent History Female Surgical History: Dilation & Curettage Other Surgical History: D&C - Social History Smoking Status: Never smoker Exposure to second hand smoke: No Alcohol Use: None Drug Use: none Patient Lives Alone: No Significant Family History: no pertinent family hx - Nursing Vital Signs Nursing Vital Signs: Initial Vital Signs Temperature 97.7 F 11/25/20 15:10 Pulse Rate 76 11/25/20 15:10 Blood Pressure 127/78 11/25/20 15:10 O2 Sat by Pulse Oximetry 99 11/25/20 15:10 Pain Scale Pain Intensity 7 - Physical Exam General Appearance: no apparent distress, alert, anxiety, obese Eye Exam: PERRL/EOMI, eyes nml inspection Ears, Nose, Throat Exam: normal ENT inspection, moist mucous membranes Neck Exam: normal inspection, non-tender, supple, full range of motion Respiratory Exam: normal breath sounds, lungs clear, airway intact, No chest tenderness, No respiratory distress Cardiovascular Exam: regular rate/rhythm, normal heart sounds, normal peripheral pulses Gastrointestinal/Abdominal Exam: soft, normal bowel sounds, No tenderness Back Exam: normal inspection, normal range of motion, No CVA tenderness, No vertebral tenderness Extremity Exam: normal inspection, normal range of motion, pelvis stable 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, 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, 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 Exam: normal hearing, normal speech, PERRL Coordination/Gait Exam: normal finger to nose, normal gait, normal cerebellar function Motor/Sensory Exam: no motor deficit, no sensory deficit, no pronator drift Skin Exam: normal color, warm, dry Lymphatic Exam: No adenopathy SpO2 Interpretation: normal O2 Delivery: Room Air - Course Nursing assessment & vital signs reviewed: Yes Ordered Tests: Medication Summary Discontinued Medications Generic Name Dose Route Start Last Admin Trade Name Freq PRN Reason Stop Dose Admin Hydromorphone HCl 1 mg 11/25/20 15:10 11/25/20 15:20 Hydromorphone 1 Mg/Ml Injection IM 11/25/20 15:11 1 mg STAT ONE Administration Hydromorphone HCl Confirm 11/25/20 15:18 Hydromorphone 1 Mg/Ml Injection Administered 11/25/20 15:19 Dose 1 mg .ROUTE .STK-MED ONE Ondansetron HCl 4 mg 11/25/20 15:10 11/25/20 15:20 Zofran Odt 4 Mg PO 11/25/20 15:11 4 mg STAT ONE Administration Ondansetron HCl Confirm 11/25/20 15:18 Zofran Odt 4 Mg Administered 11/25/20 15:19 Dose 4 mg .ROUTE .STK-MED ONE - Progress Progress: improved Air Movement: good Counseled pt/family regarding: diagnosis, need for follow-up - Departure Departure Disposition: Home Clinical Impression: Migraine headache Condition: Stable Critical Care Time: No Referrals: ALESSANDRO ROCHA [Primary Care Provider] - Additional Instructions: call your neurologist on Friday, November 27, 2020 for further evaluation and management of your chronic, recurrent migraine headaches.
[2020-11-25] MEDS ORDERED: Hydromorphone 1 mg/ml Injection IM ONE (15:10)
[2020-11-25] MEDS ORDERED: ZOFRAN ODT 4 MG PO ONE (15:10)
[2020-11-25] MEDS ORDERED: ZOFRAN ODT 4 MG ONE (15:18)
[2020-11-25] MEDS ORDERED: Hydromorphone 1 mg/ml Injection ONE (15:18)
[2020-11-25] MEDS ORDERED: NORCO 5/325 MG PO ONE (15:53)
[2020-11-25] MEDS ORDERED: NORCO 5/325 MG ONE (16:00)
[2020-11-25 16:17] VITALS: BP 135/85; PULSE 79; O2SAT 97
== END 2020-11-25 16:00 | disposition home or self-care (01) ==
LOC: ED 15:06
DX: G43.909 Migraine, unspecified, not intractable, without status migrainosus (principal)
CPT/HCPCS: 96372; 99283; J1170; Q0162; A9270-GY

== ENCOUNTER 2021-02-28 20:42 | Emergency (ER) | payer BC ==
[2021-02-28 21:48] LABS: Absolute Neutrophil Ct (ANC) 10.22 (1.4-6.9); BASOPHIL % 0.3 % (0.0-0.4); Basophil (Absolute #) 0.05 (0-0.4); Eosinophil % 2.6 % (0.00-5.0); Eosinophil (Absolute #) 0.39 (0-0.5); Hematocrit 35.5 % (35-47); Hemoglobin 11.2 gm/dl (12.0-16.0); Lymphocyte (Absolute #) 3.34 (1.0-4.6); Lymphocytes % 22.4 % (24.0-44.0); Mean Cell Volume 80.1 fl (78-100); Mean Corpuscular Hemoglobin 25.3 pg (26-32); Mean Corpuscular Hgb Concent. 31.5 g/dl (32-36); Neutrophil % 68.7 % (36.0-66.0); Platelet Count 408 K/mm3 (150-450); Red Blood Count 4.43 M/mm3 (4.1-5.4); Red Cell Distribution Width 15.9 % (11.5-14.0); White Blood Count 14.9 K/mm3 (4.0-10.5)
[2021-02-28 21:54] LABS: ALKALINE PHOSPHATASE 72 U/L (38-126); ANION GAP 13.8 MEQ/L (5-15); BLOOD UREA NITROGEN 11 mg/dL (7-17); CHLORIDE 101 mmol/L (98-107); Calcium 9.2 mg/dL (8.4-10.2); Carbon Dioxide 26 mmol/L (22-30); Creatinine 1 0.78 mg/dL (0.52-1.04); EST GLOMERULAR FILTRATION RATE > 60.0 ML/MIN; Glucose 103 mg/dL (74-106); Potassium 3.8 mmol/L (3.5-5.1); SGOT/AST 23 U/L (14-36); SGPT/ALT 18 U/L (0-35); SODIUM 137 mmol/L (137-145); Total Protein 7.2 g/dL (6.3-8.2)
[2021-02-28 22:34] LABS: Appearance CLEAR (CLEAR); Bilirubin NEGATIVE (NEGATIVE); Blood SMALL Ery/ul (0-5); Glucose NEGATIVE (NEGATIVE); Ketones NEGATIVE (NEGATIVE); Leukocyte Esterase NEGATIVE (NEGATIVE); Mucus SLIGHT /HPF (NEGATIVE); Nitrite NEGATIVE (NEGATIVE); Protein,Urine Dip NEGATIVE (Negative); Specific Gravity 1.019 (1.005-1.025); Urobilinogen NEGATIVE mg/dL (0-1)
--- NOTE | 2021-02-28 23:40 | ERPHSYRPT ---
- History of Present Illness Time Seen by Provider: 02/28/21 20:59 Historian: patient Exam Limitations: no limitations Patient Subjective Stated Complaint: Patient stated " I was driving around and I felt like I was going to have a panic attack and then my left shoulder and left side of neck felt like I had pressure weighing on it and I became concerned because I know I'm over weight and I have a long family HX of heart problems." Triage Nursing Assessment: Patient arrived to ED and ambulated back to room without difficulty. Gait slow and steady. Patient A/O times 4. Patient ROM to left shoulder and neck WNL. Patient denies any numbness or tingling in left upper extremity. + radial pulse noted to left upper extremity. Patient denies any trauma or injury to left shoulder. Patient denies any chest pain or jaw pain. Patient denies any back pain. Patient denies any SOB. Lungs clear bilateral A/P throughout. Patient denies any cough. Patient denies any N/V. Patient denies any headaches but stated she does have DX Migraines. Apical pulse strong and regular at 78 upon auscultation. No dependent edema noted. Patient states pain is a 1. Physician History: Patient is a 30-year-old female presents to our ED for evaluation of chest pressure. Patient states she was driving around playing [employer]. Patient states she has a history of panic attacks. While she was driving she began to feel pressure on her chest and in the left side of her neck. Patient states that she has a family history of cardiac problems. Patient became very concerned. Patient describes the pressure sensation as a weight sitting on her chest and left arm. No history of PE DVT. Patient presents to our ED for further evaluation of her symptoms. No syncope. No nausea or vomiting. No diaphoresis. No fever. No trauma. Symptoms are mild in intensity at time of presentation. Patient states she is otherwise healthy. She denies illicit drug use. Patient voices no other complaints or concerns at this time. Timing/Duration: today Activities at Onset: none Quality: pressure Location: other (Chest and left neck.) Chest Pain Radiation: neck Severity of Pain-Max: moderate Severity of Pain-Current: mild Modifying Factors: Improves With: nothing Associated Symptoms: denies symptoms, No nausea, No vomiting, No palpitations, No heartburn, No abdominal pain, No shortness of breath, No cough, No hurts to breathe, No diaphoresis, No fatigue, No swelling/lump in chest Prior Chest Pain/Cardiac Workup: no prior chest pain Nitro Today/Relief: no nitro taken today Aspirin Treatment Today: no aspirin today Allergies/Adverse Reactions: No Known Drug Allergies Allergy (Verified 02/28/21 20:57) Home Medications: No Reportable Medications [No Reported Medications] 07/02/20 [History] Hx Tetanus, Diphtheria Vaccination/Date Given: Yes Hx Influenza Vaccination/Date Given: No Hx Pneumococcal Vaccination/Date Given: No Immunizations Up to Date: Yes Travel Risk - International Travel Have you traveled outside of the country in past 3 weeks: No - Coronavirus Screening Are you exhibiting any of the following symptoms?: No Close contact with a COVID-19 positive Pt in past 14-21 Days: No - Vaccine Status Have you recieved a Covid-19 vaccination: No - Review of Systems Constitutional: No Symptoms, No Fever, No Chills Eyes: No Symptoms Ears, Nose, & Throat: No Symptoms Respiratory: No Symptoms, No Cough, No Dyspnea Cardiac: No Symptoms, No Chest Pain, No Edema, No Syncope Abdominal/Gastrointestinal: No Symptoms, No Abdominal Pain, No Nausea, No Vomiting, No Diarrhea Genitourinary Symptoms: No Symptoms, No Dysuria Musculoskeletal: No Symptoms, No Back Pain, No Neck Pain Skin: No Symptoms, No Rash Neurological: No Symptoms, No Dizziness, No Focal Weakness, No Sensory Changes Psychological: No Symptoms Endocrine: No Symptoms Hematologic/Lymphatic: No Symptoms Immunological/Allergic: No Symptoms All Other Systems: Reviewed and Negative - Past Medical History Pertinent Past Medical History: Yes Neurological History: Migraines ENT History: No Pertinent History Cardiac History: No Pertinent History Respiratory History: Asthma Endocrine Medical History: Other Musculoskeletal History: No Pertinent History GI Medical History: No Pertinent History History: No Pertinent History Psycho-Social History: No Pertinent History Female Reproductive Disorders: No Pertinent History Other Medical History: pt had gestational diabetes with and preclampsia induced and del at 37 weeks - Past Surgical History Past Surgical History: Yes Neuro Surgical History: No Pertinent History Cardiac: No Pertinent History Respiratory: No Pertinent History Gastrointestinal: No Pertinent History Genitourinary: No Pertinent History Musculoskeletal: No Pertinent History Female Surgical History: Dilation & Curettage Other Surgical History: D&C. HX Nasal Surgery R/T Polyps - Social History Smoking Status: Never smoker Exposure to second hand smoke: No Alcohol Use: None Drug Use: none Patient Lives Alone: No Significant Family History: no pertinent family hx - Female History Hx Last Menstrual Period: 02/02/21 Hx Now: No - Nursing Vital Signs Nursing Vital Signs: Initial Vital Signs Temperature 98.5 F 02/28/21 20:54 Pulse Rate 77 02/28/21 20:54 Respiratory Rate 20 02/28/21 20:54 Blood Pressure 151/81 02/28/21 20:54 O2 Sat by Pulse Oximetry 100 02/28/21 20:54 Pain Scale Pain Intensity 0 - Physical Exam General Appearance: no apparent distress, alert Eye Exam: PERRL/EOMI, eyes nml inspection Ears, Nose, Throat Exam: normal ENT inspection, moist mucous membranes Neck Exam: normal inspection, non-tender, supple, full range of motion Respiratory Exam: normal breath sounds, lungs clear, No respiratory distress Cardiovascular Exam: regular rate/rhythm, normal heart sounds Gastrointestinal/Abdomen Exam: soft, No tenderness, No mass Back Exam: normal inspection, No CVA tenderness, No vertebral tenderness Extremity Exam: normal inspection, normal range of motion Neurologic Exam: alert, 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, cooperative, normal mood/affect, sensation nml, No motor deficits Skin Exam: normal color, warm, dry Lymphatic Exam: No adenopathy SpO2 Interpretation: normal SpO2: 99 O2 Delivery: Room Air - Course Nursing assessment & vital signs reviewed: Yes EKG Interpreted by Me: RATE (78), Sinus Rhythm, NORMAL AXIS, NORMAL INTERVALS - Radiology Exams Chest X-ray Interpretation: Interpreted by me (Clear lung nevarez. Normal cardiac silhouette. Intact bony thorax. No acute cardiopulmonary process observed.) Ordered Tests: Active Orders 24 hr Category Date Time Status Child Nurse STAT Care 02/28/21 21:09 Completed EKG-ER Only STAT Care 02/28/21 21:08 Completed IV Insertion STAT Care 02/28/21 21:08 Completed Pulse Oximetry (ED) STAT Care 02/28/21 21:08 Completed CHEST 1 VIEW (PORTABLE) Stat Exams 02/28/21 21:09 Taken CBC W DIFF Stat Lab 02/28/21 21:30 Completed CMP Stat Lab 02/28/21 21:30 Completed D-DIMER QUANTITATIVE Stat Lab 02/28/21 21:30 Completed HCG QUALITATIVE,SERUM Routine Lab 02/28/21 21:45 Completed TROPONIN Q3H Lab 02/28/21 21:30 Completed TROPONIN Q3H Lab 03/01/21 00:01 Completed UA W/RFX UR CULTURE Stat Lab 02/28/21 22:08 Completed Lab/Rad Data: Laboratory Result Diagrams 02/28/21 21:30 02/28/21 21:30 Laboratory Results 03/01/21 02/28/21 02/28/21 Range/Units 00:01 22:08 21:45 WBC (4.0-10.5) K/mm3 RBC (4.1-5.4) M/mm3 Hgb (12.0-16.0) gm/dl Hct (35-47) % MCV (78-100) fl MCH (26-32) pg MCHC (32-36) g/dl RDW (11.5-14.0) % Plt Count (150-450) K/mm3 MPV (7.5-11.0) fl Gran % (36.0-66.0) % Eos # (Auto) (0-0.5) Absolute Lymphs (auto) (1.0-4.6) Absolute Monos (auto) (0.0-1.3) Lymphocytes % (24.0-44.0) % Monocytes % (0.0-12.0) % Eosinophils % (0.00-5.0) % Basophils % (0.0-0.4) % Absolute Granulocytes (1.4-6.9) Basophils # (0-0.4) D-Dimer (215-500) ng/mL Sodium (137-145) mmol/L Potassium (3.5-5.1) mmol/L Chloride (98-107) mmol/L Carbon Dioxide (22-30) mmol/L Anion Gap (5-15) MEQ/L BUN (7-17) mg/dL Creatinine (0.52-1.04) mg/dL Estimated GFR ML/MIN Glucose (74-106) mg/dL Calcium (8.4-10.2) mg/dL Total Bilirubin (0.2-1.3) mg/dL AST (14-36) U/L ALT (0-35) U/L Alkaline Phosphatase (38-126) U/L Troponin I < 0.012 (0.000-0.034) ng/mL Serum Total Protein (6.3-8.2) g/dL Albumin (3.5-5.0) g/dL Serum , Qual NEGATIVE (Negative) Urine Color YELLOW (YELLOW) Urine Appearance CLEAR (CLEAR) Urine pH 6.0 (5-6) Ur Specific [place] 1.019 (1.005-1.025) Urine Protein NEGATIVE (Negative) Urine Ketones NEGATIVE (NEGATIVE) Urine Blood SMALL (0-5) Efrem/ul Urine Nitrite NEGATIVE (NEGATIVE) Urine Bilirubin NEGATIVE (NEGATIVE) Urine Urobilinogen NEGATIVE (0-1) mg/dL Ur Leukocyte Esterase NEGATIVE (NEGATIVE) Urine WBC (Auto) NONE (0-5) /HPF Urine RBC (Auto) 3-5 (0-2) /HPF U Epithel Cells (Auto) NONE (FEW) /HPF Urine Bacteria (Auto) NONE (NEGATIVE) /HPF Urine Mucus (Auto) SLIGHT (NEGATIVE) /HPF Urine Culture Reflexed NO (NO) Urine Glucose NEGATIVE (NEGATIVE) mg/dL 02/28/21 02/28/21 02/28/21 Range/Units 21:30 21:30 21:30 WBC (4.0-10.5) K/mm3 RBC (4.1-5.4) M/mm3 Hgb (12.0-16.0) gm/dl Hct (35-47) % MCV (78-100) fl MCH (26-32) pg MCHC (32-36) g/dl RDW (11.5-14.0) % Plt Count (150-450) K/mm3 MPV (7.5-11.0) fl Gran % (36.0-66.0) % Eos # (Auto) (0-0.5) Absolute Lymphs (auto) (1.0-4.6) Absolute Monos (auto) (0.0-1.3) Lymphocytes % (24.0-44.0) % Monocytes % (0.0-12.0) % Eosinophils % (0.00-5.0) % Basophils % (0.0-0.4) % Absolute Granulocytes (1.4-6.9) Basophils # (0-0.4) D-Dimer 287 (215-500) ng/mL Sodium 137 (137-145) mmol/L Potassium 3.8 (3.5-5.1) mmol/L Chloride 101 (98-107) mmol/L Carbon Dioxide 26 (22-30) mmol/L Anion Gap 13.8 (5-15) MEQ/L BUN 11 (7-17) mg/dL Creatinine 0.78 (0.52-1.04) mg/dL Estimated GFR > 60.0 ML/MIN Glucose 103 (74-106) mg/dL Calcium 9.2 (8.4-10.2) mg/dL Total Bilirubin 0.10 L (0.2-1.3) mg/dL AST 23 (14-36) U/L ALT 18 (0-35) U/L Alkaline Phosphatase 72 (38-126) U/L Troponin I < 0.012 (0.000-0.034) ng/mL Serum Total Protein 7.2 (6.3-8.2) g/dL Albumin 4.0 (3.5-5.0) g/dL Serum , Qual (Negative) Urine Color (YELLOW) Urine Appearance (CLEAR) Urine pH (5-6) Ur Specific [place] (1.005-1.025) Urine Protein (Negative) Urine Ketones (NEGATIVE) Urine Blood (0-5) Efrem/ul Urine Nitrite (NEGATIVE) Urine Bilirubin (NEGATIVE) Urine Urobilinogen (0-1) mg/dL Ur Leukocyte Esterase (NEGATIVE) Urine WBC (Auto) (0-5) /HPF Urine RBC (Auto) (0-2) /HPF U Epithel Cells (Auto) (FEW) /HPF Urine Bacteria (Auto) (NEGATIVE) /HPF Urine Mucus (Auto) (NEGATIVE) /HPF Urine Culture Reflexed (NO) Urine Glucose (NEGATIVE) mg/dL 02/28/21 Range/Units 21:30 WBC 14.9 H (4.0-10.5) K/mm3 RBC 4.43 (4.1-5.4) M/mm3 Hgb 11.2 L (12.0-16.0) gm/dl Hct 35.5 (35-47) % MCV 80.1 (78-100) fl MCH 25.3 L (26-32) pg MCHC 31.5 L (32-36) g/dl RDW 15.9 H (11.5-14.0) % Plt Count 408 (150-450) K/mm3 MPV 9.0 (7.5-11.0) fl Gran % 68.7 H (36.0-66.0) % Eos # (Auto) 0.39 (0-0.5) Absolute Lymphs (auto) 3.34 (1.0-4.6) Absolute Monos (auto) 0.90 (0.0-1.3) Lymphocytes % 22.4 L (24.0-44.0) % Monocytes % 6.0 (0.0-12.0) % Eosinophils % 2.6 (0.00-5.0) % Basophils % 0.3 (0.0-0.4) % Absolute Granulocytes 10.22 H (1.4-6.9) Basophils # 0.05 (0-0.4) D-Dimer (215-500) ng/mL Sodium (137-145) mmol/L Potassium (3.5-5.1) mmol/L Chloride (98-107) mmol/L Carbon Dioxide (22-30) mmol/L Anion Gap (5-15) MEQ/L BUN (7-17) mg/dL Creatinine (0.52-1.04) mg/dL Estimated GFR ML/MIN Glucose (74-106) mg/dL Calcium (8.4-10.2) mg/dL Total Bilirubin (0.2-1.3) mg/dL AST (14-36) U/L ALT (0-35) U/L Alkaline Phosphatase (38-126) U/L Troponin I (0.000-0.034) ng/mL Serum Total Protein (6.3-8.2) g/dL Albumin (3.5-5.0) g/dL Serum , Qual (Negative) Urine Color (YELLOW) Urine Appearance (CLEAR) Urine pH (5-6) Ur Specific [place] (1.005-1.025) Urine Protein (Negative) Urine Ketones (NEGATIVE) Urine Blood (0-5) Efrem/ul Urine Nitrite (NEGATIVE) Urine Bilirubin (NEGATIVE) Urine Urobilinogen (0-1) mg/dL Ur Leukocyte Esterase (NEGATIVE) Urine WBC (Auto) (0-5) /HPF Urine RBC (Auto) (0-2) /HPF U Epithel Cells (Auto) (FEW) /HPF Urine Bacteria (Auto) (NEGATIVE) /HPF Urine Mucus (Auto) (NEGATIVE) /HPF Urine Culture Reflexed (NO) Urine Glucose (NEGATIVE) mg/dL - Progress Progress: improved Air Movement: good Progress Note: Patient reassessed. She feels well. Vital stable. Troponin negative x2. Work-up essentially nonremarkable for acute cardiopulmonary pathology. Mild leukocytosis however there is no fever, tachycardia or symptomology concerning for active infection at this time. D-dimer negative. Chest x-ray negative. EKG normal sinus rhythm. Patient states she is ready for discharge. Will discharge home. Patient agrees to follow-up with her primary care doctor within 24 hours for reevaluation. 03/01/21 04:03 Blood Culture(s) Obtained: No Antibiotics given: No Counseled pt/family regarding: lab results, diagnosis, need for follow-up, rad results - Departure Departure Disposition: Home Clinical Impression: Anxiety, Normocytic anemia, Leukocytosis, Chest pain Condition: Stable Critical Care Time: No Referrals: ALESSANDRO ROCHA [Primary Care Provider] - Instructions: Anxiety, Adult (DC) Additional Instructions: Discharge/Care Plan COMPA ZHANG was seen on 02/28/21 in the Emergency Room. The patient was counseled regarding Diagnosis,Lab results, Imaging studies, need for follow up and when to return to the Emergency Room. Prescriptions given: Discharge Note I have spoken with the patient and/or caregivers. I have explained the patient's condition, diagnosis and treatment plan based on the information available to me at this time. I have answered the patient's and/or caregiver's questions and addressed any concerns. The patient and/or caregivers have as good understanding of the patient's diagnosis, condition and treatment plan as can be expected at this point. The vital signs have been stable. The patient's condition is stable and appropriate for discharge from the emergency department. The patient will pursue further outpatient evaluation with the primary care physician or other designated or consulting physician as outlined in the discharge instructions. The patient and/or caregivers are agreeable to this plan of care and follow-up instructions have been explained in detail. The patient and/or caregivers have received these instruction. The patient/and or caregivers are aware that any significant change in condition or worsening of symptoms should prompt an immediate return to this or the closest emergency department or call 911.
[2021-03-01 00:41] VITALS: BP 118/62; PULSE 75
[2021-03-01 04:06] VITALS: O2SAT 99
--- NOTE | 2021-03-01 08:58 | XRAY ---
Indication: Chest pain. Comparison: July 31, 2020. Portable chest again demonstrates normal heart, lungs, and bony thorax.
== END 2021-03-01 00:44 | disposition home or self-care (01) ==
LOC: ED 20:42
DX: F41.9 Anxiety disorder, unspecified (principal); D64.9 Anemia, unspecified; D72.829 Elevated white blood cell count, unspecified; R07.9 Chest pain, unspecified
CPT/HCPCS: 36000; 36415; 71045; 80053; 81001; 81025; 84484; 85025; 85379; 93005; 93041; 94760; 99284

== ENCOUNTER 2021-08-07 20:13 | Emergency (ER) | payer BC | END 2021-08-07 21:40 | disposition left against medical advice (07) | LOC: ED 20:13 | DX: Z53.9 Procedure and treatment not carried out, unspecified reason (principal) ==

== ENCOUNTER 2021-10-16 09:12 | Emergency (ER) | payer BC ==
[2021-10-16] MEDS ORDERED: ZOFRAN ODT 4 MG PO ONE (09:35)
[2021-10-16] MEDS ORDERED: Hydromorphone 1 mg/ml Injection IM ONE (09:35)
--- NOTE | 2021-10-16 09:35 | ERPHSYRPT ---
- History of Present Illness Time Seen by Provider: 10/16/21 09:25 Source: patient Exam Limitations: no limitations Patient Subjective Stated Complaint: Pt states "I have a hx of migraines and I can usually keep them under control but this one hurts." Triage Nursing Assessment: PT presented alert and oriented X 3, skin pwd Pt ambulates with an upright steady gait, able to speak in clear full sentences pt in no apparent respiratory distress. Pt phone dinged while in room and pt started texting without any issues. Physician History: This is a morbidly obese 31-year-old white female has a history of recurrent, chronic migraine headaches. At 2 AM this morning she began having generalized migraine headaches. His typical migraine for her. Is not the worst headache she is ever had. She denies head trauma. She used her usual medications but this did not help. Patient has been given Dilaudid and Zofran in the past which is helped resolve her headache. Patient has no known drug allergies. Timing/Duration: today Quality: aching, throbbing Head Pain Location: global Severity of Pain-Max: moderate Severity of Pain-Current: moderate Recent Head Trauma: chronic headaches, occasional headaches Modifying Factors: Improves With: exposure to light, noise Associated Symptoms: nausea/vomiting, sensitive to light, No fever/chills, No loss of consciousness, No neck pain, No seizures Previous symptoms: same symptoms as today, no recent treatment Allergies/Adverse Reactions: No Known Drug Allergies Allergy (Verified 02/28/21 20:57) Home Medications: Galcanezumab-Gnlm [Emgality] 120 mg SQ WEEKLY 10/16/21 [History] Ubrogepant [Ubrelvy] 100 mg PO DAILY PRN 10/16/21 [History] Hx Tetanus, Diphtheria Vaccination/Date Given: Yes Hx Influenza Vaccination/Date Given: No Hx Pneumococcal Vaccination/Date Given: No Immunizations Up to Date: Yes Travel Risk - International Travel Have you traveled outside of the country in past 3 weeks: No - Coronavirus Screening Are you exhibiting any of the following symptoms?: No - Vaccine Status Have you recieved a Covid-19 vaccination: No - Review of Systems Constitutional: No Symptoms Eyes: No Symptoms Ears, Nose, & Throat: No Symptoms Respiratory: No Symptoms Cardiac: No Symptoms Abdominal/Gastrointestinal: No Symptoms Genitourinary Symptoms: No Symptoms Musculoskeletal: No Symptoms Skin: No Symptoms Neurological: Headache Psychological: No Symptoms Endocrine: No Symptoms Hematologic/Lymphatic: No Symptoms Immunological/Allergic: No Symptoms All Other Systems: Reviewed and Negative - Past Medical History Pertinent Past Medical History: Yes Neurological History: Migraines ENT History: No Pertinent History Cardiac History: No Pertinent History Respiratory History: Asthma Endocrine Medical History: Other Musculoskeletal History: No Pertinent History GI Medical History: No Pertinent History History: No Pertinent History Psycho-Social History: No Pertinent History Female Reproductive Disorders: No Pertinent History Other Medical History: pt had gestational diabetes with and preclampsia induced and del at 37 weeks - Past Surgical History Past Surgical History: Yes Neuro Surgical History: No Pertinent History Cardiac: No Pertinent History Respiratory: No Pertinent History Gastrointestinal: No Pertinent History Genitourinary: No Pertinent History Musculoskeletal: No Pertinent History Female Surgical History: Dilation & Curettage Other Surgical History: D&C. HX Nasal Surgery R/T Polyps - Social History Smoking Status: Never smoker Exposure to second hand smoke: No Alcohol Use: None Drug Use: none Patient Lives Alone: No Significant Family History: no pertinent family hx - Female History Hx Last Menstrual Period: 10/09/2021 Hx Now: No - Nursing Vital Signs Nursing Vital Signs: Initial Vital Signs Temperature 98.8 F 10/16/21 09:19 Pulse Rate 86 10/16/21 09:19 Respiratory Rate 20 10/16/21 09:19 Blood Pressure 152/89 10/16/21 09:19 O2 Sat by Pulse Oximetry 99 10/16/21 09:19 Pain Scale Pain Intensity 8 - Physical Exam General Appearance: mild distress, alert, anxiety, obese Eye Exam: PERRL/EOMI, eyes nml inspection Ears, Nose, Throat Exam: normal ENT inspection, moist mucous membranes Neck Exam: normal inspection, non-tender, supple, full range of motion Respiratory Exam: airway intact, No chest tenderness, No respiratory distress Cardiovascular Exam: regular rate/rhythm, normal heart sounds, normal peripheral pulses Gastrointestinal/Abdominal Exam: No tenderness Back Exam: normal inspection, normal range of motion, No CVA tenderness Extremity Exam: normal inspection, normal range of motion, pelvis stable 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, 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, 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 Exam: normal hearing, normal speech, PERRL Coordination/Gait Exam: normal finger to nose, normal gait, normal cerebellar function Motor/Sensory Exam: no motor deficit, no sensory deficit, no pronator drift Skin Exam: normal color, warm, dry Lymphatic Exam: No adenopathy SpO2 Interpretation: normal SpO2: 99 O2 Delivery: Room Air - Course Nursing assessment & vital signs reviewed: Yes - Progress Progress: improved Air Movement: good Blood Culture(s) Obtained: No Antibiotics given: No Counseled pt/family regarding: diagnosis, need for follow-up - Departure Departure Disposition: Home Clinical Impression: Migraine headache Condition: Stable Critical Care Time: No Referrals: ALESSANDRO ROCHA [Primary Care Provider] - Follow up/PCP as directed Additional Instructions: Follow-up with a neurologist for further evaluation and management of your migraine headaches.
[2021-10-16] MEDS ORDERED: ZOFRAN ODT 4 MG ONE (09:39)
[2021-10-16] MEDS ORDERED: Hydromorphone 1 mg/ml Injection ONE (09:40)
[2021-10-16 10:21] VITALS: BP 153/96; PULSE 91; O2SAT 98
[2021-10-16] MEDS ORDERED: BENADRYL 50 MG/ML IM ONE (10:32)
[2021-10-16] MEDS ORDERED: TORAdol 30 mg Injection IM ONE (10:32)
[2021-10-16] MEDS ORDERED: BENADRYL 50 MG/ML ONE (10:47)
[2021-10-16] MEDS ORDERED: TORAdol 30 mg Injection ONE (10:47)
== END 2021-10-16 11:19 | disposition home or self-care (01) ==
LOC: ED 09:12
DX: G43.909 Migraine, unspecified, not intractable, without status migrainosus (principal); R11.2 Nausea with vomiting, unspecified; Z79.899 Other long term (current) drug therapy
CPT/HCPCS: 96372; 99284; J1170; J1200; J1885; Q0162

== ENCOUNTER 2021-12-26 13:33 | Emergency (ER) | payer BC ==
--- NOTE | 2021-12-26 13:44 | ERPHSYRPT ---
- History of Present Illness Time Seen by Provider: 12/26/21 13:41 Source: patient Exam Limitations: no limitations Patient Subjective Stated Complaint: Pt states "I have been going through my inhaler fast and I am having a hard time breathing." Triage Nursing Assessment: Pt presented alert and oriented X 3, skin pwd. Pt ambulates with an upright steady gait, able to speak in clear full sentences. pt has coarse respirations. Physician History: This is a 31-year-old obese white female has a history of asthma and has albuterol inhaler. She has been using this more frequently last several days. However, she has had episodes that of been intermittent just like this since July 2021. She has an appointment to see a correctional counselor in January 2022. Patient does not smoke cigarettes. She is wheezing. She denies fever. She denies nausea vomiting diarrhea. She denies arthralgias myalgias. He has a mild cough. He does not have chest pain. She does not have a nebulizer machine at home. Timing/Duration: day(s) (Several days), intermittent, worse Severity of Dyspnea-Max: moderate Severity of Dyspnea-Current: moderate Possible Cause: occasional episodes Modifying Factors: Improves With: albuterol inhaler, deep breath Associated Symptoms: wheezing Allergies/Adverse Reactions: No Known Drug Allergies Allergy (Verified 02/28/21 20:57) Home Medications: Albuterol Sulfate [Albuterol Sulfate Hfa] 8.5 gm IH DAILY 12/26/21 [History] Fluticasone/Salmeterol [Advair 100-50 Diskus] 1 tab PO DAILY 12/26/21 [History] Ubrogepant [Ubrelvy] 100 mg PO DAILY 12/26/21 [History] Hx Tetanus, Diphtheria Vaccination/Date Given: Yes Hx Influenza Vaccination/Date Given: No Hx Pneumococcal Vaccination/Date Given: No Immunizations Up to Date: Yes Travel Risk - International Travel Have you traveled outside of the country in past 3 weeks: No - Coronavirus Screening Are you exhibiting any of the following symptoms?: No Close contact with a COVID-19 positive Pt in past 14-21 Days: No - Vaccine Status Have you recieved a Covid-19 vaccination: No - Review of Systems Constitutional: No Symptoms Eyes: No Symptoms Ears, Nose, & Throat: No Symptoms Respiratory: Dyspnea, Wheezing Cardiac: No Symptoms Abdominal/Gastrointestinal: No Symptoms Genitourinary Symptoms: No Symptoms Musculoskeletal: No Symptoms Skin: No Symptoms Neurological: No Symptoms Psychological: No Symptoms Endocrine: No Symptoms Hematologic/Lymphatic: No Symptoms Immunological/Allergic: No Symptoms All Other Systems: Reviewed and Negative - Past Medical History Pertinent Past Medical History: Yes Neurological History: Migraines ENT History: No Pertinent History Cardiac History: No Pertinent History Respiratory History: Asthma Endocrine Medical History: Other Musculoskeletal History: No Pertinent History GI Medical History: No Pertinent History History: No Pertinent History Psycho-Social History: No Pertinent History Female Reproductive Disorders: No Pertinent History Other Medical History: pt had gestational diabetes with and preclampsia induced and del at 37 weeks - Past Surgical History Past Surgical History: Yes Neuro Surgical History: No Pertinent History Cardiac: No Pertinent History Respiratory: No Pertinent History Gastrointestinal: No Pertinent History Genitourinary: No Pertinent History Musculoskeletal: No Pertinent History Female Surgical History: Dilation & Curettage Other Surgical History: D&C. HX Nasal Surgery R/T Polyps - Social History Smoking Status: Never smoker Exposure to second hand smoke: No Alcohol Use: None Drug Use: none Patient Lives Alone: No Significant Family History: no pertinent family hx - Female History Hx Last Menstrual Period: 12/06/2021 Hx Now: No - Nursing Vital Signs Nursing Vital Signs: Initial Vital Signs Temperature 97.3 F 12/26/21 13:34 Pulse Rate 87 12/26/21 13:34 Respiratory Rate 24 12/26/21 13:34 Blood Pressure 154/92 12/26/21 13:34 O2 Sat by Pulse Oximetry 98 12/26/21 13:34 Pain Scale Pain Intensity 0 - Physical Exam General Appearance: no apparent distress, alert, anxiety, obese Eye Exam: PERRL/EOMI, eyes nml inspection Ears, Nose, Throat Exam: hearing grossly normal, normal ENT inspection, normal pharynx Neck Exam: normal inspection, non-tender, supple, full range of motion Respiratory Exam: airway intact, wheezing, No chest tenderness, No respiratory distress Cardiovascular/Chest Exam: normal heart sounds, regular rate/rhythm, normal peripheral pulses Abdominal/Gastrointestinal Exam: soft, normal bowel sounds, tenderness Rectal Exam: not done Extremity Exam: non-tender, normal range of motion, normal inspection, normal capillary refill, no calf tenderness, no pedal edema, pelvis stable Neurologic Exam: alert, 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, cooperative, 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, normal mood/affect, nml cerebellar function, nml station & gait, sensation nml Skin Exam: normal color, warm, dry Lymphatic Exam: No adenopathy SpO2 Interpretation: normal SpO2: 99 O2 Delivery: Room Air - Course Nursing assessment & vital signs reviewed: Yes EKG Interpreted by Me: RATE (74), Sinus Rhythm, NORMAL AXIS, NORMAL INTERVALS, NORMAL QRS, NORMAL ST-T, Other (No acute ischemic changes on today's EKG.) Ordered Tests: Active Orders 24 hr Category Date Time Status Atg Java Developer STAT Care 12/26/21 13:45 Active EKG-ER Only STAT Care 12/26/21 13:45 Active IV Insertion STAT Care 12/26/21 13:45 Active Pulse Oximetry (ED) STAT Care 12/26/21 13:45 Active CHEST 1 VIEW (PORTABLE) Stat Exams 12/26/21 14:06 Completed CBC W DIFF Stat Lab 12/26/21 13:45 Completed CMP Stat Lab 12/26/21 13:57 Completed D-DIMER QUANTITATIVE Stat Lab 12/26/21 13:57 Completed NT PRO BNP Stat Lab 12/26/21 13:57 Completed PROTIME WITH INR Stat Lab 12/26/21 13:57 Completed TROPONIN Q3H Lab 12/26/21 13:57 Completed TROPONIN Q3H Lab 12/26/21 16:45 Ordered TROPONIN Q3H Lab 12/26/21 19:45 Ordered TROPONIN Q3H Lab 12/26/21 22:45 Ordered TROPONIN Q3H Lab 12/27/21 01:45 Ordered Respiratory Therapy Assessment DAILY RT 12/26/21 14:06 Active Medication Summary Discontinued Medications Generic Name Dose Route Start Last Admin Trade Name Freq PRN Reason Stop Dose Admin Albuterol Sulfate Confirm 12/26/21 13:52 Albuterol Sulfate 2.5 Mg/3 Ml Neb Administered 12/26/21 13:53 Dose 2.5 mg IH .STK-MED ONE Albuterol Sulfate 2.5 mg 12/26/21 14:06 12/26/21 14:06 Albuterol Sulfate 2.5 Mg/3 Ml Neb IH 12/26/21 14:07 2.5 mg STAT ONE Administration Methylprednisolone Sodium 0 mg 12/26/21 13:46 12/26/21 13:50 Succinate 125 mg/ Sterile IV 12/26/21 13:47 125 mg Water 2 ml STAT ONE Administration Methylprednisolone Sodium Succinate Confirm 12/26/21 13:50 Methylprednis Sod Succ 125 Mg/2 Ml Vial Administered 12/26/21 13:51 Dose 125 mg .ROUTE .Cinema One-MED ONE Sterile Water Confirm 12/26/21 13:50 Water For Injection,Sterile 10 Ml Vial Administered 12/26/21 13:51 Dose 10 ml IJ .STK-MED ONE Lab/Rad Data: Laboratory Result Diagrams 12/26/21 13:45 12/26/21 13:57 Laboratory Results 12/26/21 12/26/21 12/26/21 Range/Units 13:57 13:57 13:57 WBC (4.0-10.5) x10^3/uL RBC (4.1-5.4) x10^6/uL Hgb (12.0-16.0) g/dL Hct (35-47) % MCV (78-100) fL MCH (26-32) pg MCHC (32-36) g/dL RDW (11.5-14.0) % Plt Count (150-450) x10^3/uL MPV (7.5-11.0) fL Gran % (36.0-66.0) % Immature Gran % (Auto) (0.00-0.4) % Nucleat RBC Rel Count (0.00-0.1) % Eos # (Auto) (0-0.5) x10^3/uL Immature Gran # (Auto) (0.00-0.03) x10^3u/L Absolute Lymphs (auto) (1.0-4.6) x10^3/uL Absolute Monos (auto) (0.0-1.3) x10^3/uL Absolute Nucleated RBC (0.00-0.01) x10^3u/L Lymphocytes % (24.0-44.0) % Monocytes % (0.0-12.0) % Eosinophils % (0.00-5.0) % Basophils % (0.0-0.4) % Absolute Granulocytes (1.4-6.9) x10^3/uL Basophils # (0-0.4) x10^3/uL PT 10.7 (9.4-12.5) SECONDS INR 1.01 (0.8-3.0) D-Dimer 0.30 (0.0-0.50) ng/mL Sodium 138 (137-145) mmol/L Potassium 4.2 (3.5-5.1) mmol/L Chloride 103 (98-107) mmol/L Carbon Dioxide 27 (22-30) mmol/L Anion Gap 11.7 (5-15) MEQ/L BUN 8 (7-17) mg/dL Creatinine 0.69 (0.52-1.04) mg/dL Estimated GFR > 60.0 ML/MIN Glucose 85 (74-106) mg/dL Calcium 9.6 (8.4-10.2) mg/dL Total Bilirubin 0.50 (0.2-1.3) mg/dL AST 23 (14-36) U/L ALT 19 (0-35) U/L Alkaline Phosphatase 67 (38-126) U/L Troponin I < 0.012 (0.000-0.034) ng/mL NT-Pro-B Natriuret Pep 31.6 (0-450) pg/mL Serum Total Protein 6.8 (6.3-8.2) g/dL Albumin 3.7 (3.5-5.0) g/dL 12/26/21 Range/Units 13:45 WBC 11.7 H (4.0-10.5) x10^3/uL RBC 4.69 (4.1-5.4) x10^6/uL Hgb 11.9 L (12.0-16.0) g/dL Hct 38.5 (35-47) % MCV 82.1 (78-100) fL MCH 25.4 L (26-32) pg MCHC 30.9 L (32-36) g/dL RDW 14.9 H (11.5-14.0) % Plt Count 413 (150-450) x10^3/uL MPV 8.9 (7.5-11.0) fL Gran % 57.6 (36.0-66.0) % Immature Gran % (Auto) 0.3 (0.00-0.4) % Nucleat RBC Rel Count 0.0 (0.00-0.1) % Eos # (Auto) 0.72 H (0-0.5) x10^3/uL Immature Gran # (Auto) 0.04 H (0.00-0.03) x10^3u/L Absolute Lymphs (auto) 3.37 (1.0-4.6) x10^3/uL Absolute Monos (auto) 0.78 (0.0-1.3) x10^3/uL Absolute Nucleated RBC 0.00 (0.00-0.01) x10^3u/L Lymphocytes % 28.7 (24.0-44.0) % Monocytes % 6.6 (0.0-12.0) % Eosinophils % 6.1 H (0.00-5.0) % Basophils % 0.7 (0.0-0.4) % Absolute Granulocytes 6.75 (1.4-6.9) x10^3/uL Basophils # 0.08 (0-0.4) x10^3/uL PT (9.4-12.5) SECONDS INR (0.8-3.0) D-Dimer (0.0-0.50) ng/mL Sodium (137-145) mmol/L Potassium (3.5-5.1) mmol/L Chloride (98-107) mmol/L Carbon Dioxide (22-30) mmol/L Anion Gap (5-15) MEQ/L BUN (7-17) mg/dL Creatinine (0.52-1.04) mg/dL Estimated GFR ML/MIN Glucose (74-106) mg/dL Calcium (8.4-10.2) mg/dL Total Bilirubin (0.2-1.3) mg/dL AST (14-36) U/L ALT (0-35) U/L Alkaline Phosphatase (38-126) U/L Troponin I (0.000-0.034) ng/mL NT-Pro-B Natriuret Pep (0-450) pg/mL Serum Total Protein (6.3-8.2) g/dL Albumin (3.5-5.0) g/dL - Progress Progress: improved, re-examined Air Movement: good Progress Note: 12/26/21 14:18 X-ray shows no acute cardiopulmonary process. Patient states that she feels better after receiving the nebulizer treatment of albuterol and steroid injection. Blood Culture(s) Obtained: No Antibiotics given: No Counseled pt/family regarding: lab results, diagnosis, need for follow-up, rad results - Departure Departure Disposition: Home Clinical Impression: Asthma exacerbation Condition: Stable Critical Care Time: No Referrals: ALESSANDRO ROCHA [Primary Care Provider] - Follow up/PCP as directed Additional Instructions: May use your family nebulizer at home. Fill the albuterol vials prescription. Take your steroids as prescribed. Follow-up with your primary care provider for further evaluation and management. Prescriptions: Prednisone 10 mg [Deltasone 10 mg] 10 mg PO TID #12 tablet Albuterol 2.5 mg/3 ml Neb [Proventil 2.5 mg/3 ml Neb] 2.5 mg IH Q6H #25 unit
[2021-12-26] MEDS ORDERED: solu-MEDROL ONE (13:50)
[2021-12-26] MEDS: solu-MEDROL 125 MG, Sterile H2O 10 ml 2 ML IV ONE ×2 (13:50)
[2021-12-26] MEDS ORDERED: Sterile H2O 10 ml IJ ONE (13:50)
[2021-12-26] MEDS ORDERED: PROVENTIL 2.5 MG/3 ML NEB IH ONE (13:52)
[2021-12-26] MEDS: PROVENTIL 2.5 MG/3 ML NEB IH ONE (14:06)
[2021-12-26 14:07] LABS: Absolute Neutrophil Ct (ANC) 6.75 x10^3/uL (1.4-6.9); Basophil (Absolute #) 0.08 x10^3/uL (0-0.4); Eosinophil % 6.1 % (0.00-5.0); Eosinophil (Absolute #) 0.72 x10^3/uL (0-0.5); Hematocrit 38.5 % (35-47); Hemoglobin 11.9 g/dL (12.0-16.0); Lymphocyte (Absolute #) 3.37 x10^3/uL (1.0-4.6); Lymphocytes % 28.7 % (24.0-44.0); Mean Cell Volume 82.1 fL (78-100); Mean Corpuscular Hemoglobin 25.4 pg (26-32); Mean Corpuscular Hgb Concent. 30.9 g/dL (32-36); Mean Platelet Volume 8.9 fL (7.5-11.0); Monocyte (Absolute #) 0.78 x10^3/uL (0.0-1.3); Monocytes % 6.6 % (0.0-12.0); Neutrophil % 57.6 % (36.0-66.0); Platelet Count 413 x10^3/uL (150-450); Red Blood Count 4.69 x10^6/uL (4.1-5.4); Red Cell Distribution Width 14.9 % (11.5-14.0); White Blood Count 11.7 x10^3/uL (4.0-10.5)
--- NOTE | 2021-12-26 14:14 | XRAY ---
Indication: Short of breath and wheezing. History asthma. Comparison: February 28, 2021. Portable chest continues to demonstrate normal heart, lungs, and bony thorax.
[2021-12-26 14:26] LABS: D-DIMER QUANTITATIVE 0.3 ng/mL (0.0-0.50); INR 1.01 (0.8-3.0); PROTIME 10.7 SECONDS (9.4-12.5)
[2021-12-26 14:33] LABS: ALBUMIN 3.7 g/dL (3.5-5.0); ALKALINE PHOSPHATASE 67 U/L (38-126); ANION GAP 11.7 MEQ/L (5-15); BLOOD UREA NITROGEN 8 mg/dL (7-17); CHLORIDE 103 mmol/L (98-107); Calcium 9.6 mg/dL (8.4-10.2); Carbon Dioxide 27 mmol/L (22-30); Creatinine 1 0.69 mg/dL (0.52-1.04); EST GLOMERULAR FILTRATION RATE > 60.0 ML/MIN; Glucose 85 mg/dL (74-106); NT PRO BNP 31.6 pg/mL (0-450); Potassium 4.2 mmol/L (3.5-5.1); SGOT/AST 23 U/L (14-36); SGPT/ALT 19 U/L (0-35); SODIUM 138 mmol/L (137-145); Total Protein 6.8 g/dL (6.3-8.2)
[2021-12-26 15:02] VITALS: O2SAT 98
[2021-12-26 15:02] LABS: INFLUENZA A NEGATIVE (NEGATIVE); INFLUENZA B NEGATIVE (NEGATIVE); RESPIRATORY SYNCTIAL VIRUS NEGATIVE (Negative); SARS-CoV-2 Xpert Express NEGATIVE (NEGATIVE)
[2021-12-26 15:35] VITALS: BP 129/81; PULSE 80
== END 2021-12-26 15:35 | disposition home or self-care (01) ==
LOC: ED 13:33
DX: J45.901 Unspecified asthma with (acute) exacerbation (principal); R06.00 Dyspnea, unspecified; R05.9 Cough, unspecified; Z79.52 Long term (current) use of systemic steroids; Z79.899 Other long term (current) drug therapy
CPT/HCPCS: 0241U; 36000; 36415; 71045; 80053; 83880; 84484; 85025; 85379; 85610; 93005; 93041; 94640; 94760; 96374; 99284; J2930; J7609; A9270-GY

== ENCOUNTER 2023-01-22 16:03 | Emergency (ER) | payer BC ==
[2023-01-22 16:22] VITALS: BP 123/94; PULSE 96; O2SAT 97
[2023-01-22] MEDS ORDERED: TORAdol 30 mg Injection IM ONE (16:53)
[2023-01-22] MEDS ORDERED: Compazine 10 MG/2 ML IM ONE (16:54)
--- NOTE | 2023-01-22 16:59 | ERPHSYRPT ---
- History of Present Illness Source: patient Exam Limitations: no limitations Patient Subjective Stated Complaint: Pt states that she has had a migraine for 4 days and an occular migraine, pt also states that she was having double vision yesterday, pt had been to [facility] care and they sent her to the ER Triage Nursing Assessment: Pt brought self to the ER, brigitte ting, rates pain as 7/10, pain is more to the right side of the head, nausea but denies vomiting, hasn't eaten in a couple of days, pulses normal, skin n/w/d, laying with eyes shut, doesn't appear to be in any distress Physician History: 32 yo WF w long h/o migraine headaches presents w R hemispheric headache x 4 days. Pain is 7/10 and worse w bright lights/noise. Pain is described as throbbing. Pt denies focal weakness/fever/trauma. Pain typical of pt's headaches. Timing/Duration: other (3 days) Quality: other (throbbing) Severity of Pain-Max: severe Severity of Pain-Current: moderate Recent Head Trauma: no recent headache/trauma, frequent headaches, chronic headaches Modifying Factors: Improves With: exposure to light, noise Associated Symptoms: denies symptoms, sensitive to light Previous symptoms: same symptoms as today Allergies/Adverse Reactions: No Known Drug Allergies Allergy (Verified 01/22/23 16:22) Home Medications: Albuterol Sulfate [Albuterol Sulfate Hfa] 8.5 gm IH DAILY 12/26/21 [History] Ubrogepant [Ubrelvy] 100 mg PO DAILY 12/26/21 [History] Hx Tetanus, Diphtheria Vaccination/Date Given: Yes Hx Influenza Vaccination/Date Given: No Hx Pneumococcal Vaccination/Date Given: No Travel Risk - International Travel Have you traveled outside of the country in past 3 weeks: No - Coronavirus Screening Are you exhibiting any of the following symptoms?: No Close contact with a COVID-19 positive Pt in past 14-21 Days: No - Vaccine Status Have you recieved a Covid-19 vaccination: No - Review of Systems Constitutional: No Symptoms Eyes: No Symptoms Ears, Nose, & Throat: No Symptoms Respiratory: No Symptoms Cardiac: No Symptoms Abdominal/Gastrointestinal: No Symptoms Genitourinary Symptoms: No Symptoms Musculoskeletal: No Symptoms Skin: No Symptoms Neurological: No Symptoms, Headache Psychological: No Symptoms Endocrine: No Symptoms Hematologic/Lymphatic: No Symptoms Immunological/Allergic: No Symptoms - Past Medical History Pertinent Past Medical History: Yes Neurological History: Migraines ENT History: No Pertinent History Cardiac History: No Pertinent History Respiratory History: Asthma Endocrine Medical History: Other Musculoskeletal History: No Pertinent History GI Medical History: No Pertinent History History: No Pertinent History Psycho-Social History: No Pertinent History Female Reproductive Disorders: No Pertinent History Other Medical History: pt had gestational diabetes with and preclampsia induced and del at 37 weeks - Past Surgical History Past Surgical History: Yes Neuro Surgical History: No Pertinent History Cardiac: No Pertinent History Respiratory: No Pertinent History Gastrointestinal: No Pertinent History Genitourinary: No Pertinent History Musculoskeletal: No Pertinent History Female Surgical History: Dilation & Curettage Other Surgical History: D&C. HX Nasal Surgery R/T Polyps - Social History Smoking Status: Never smoker Exposure to second hand smoke: No Alcohol Use: None Drug Use: none Patient Lives Alone: No Significant Family History: no pertinent family hx - Female History Hx Now: No - Nursing Vital Signs Nursing Vital Signs: Initial Vital Signs Temperature 98.0 F 01/22/23 16:14 Pulse Rate 96 H 01/22/23 16:14 Blood Pressure 123/94 01/22/23 16:14 O2 Sat by Pulse Oximetry 97 01/22/23 16:14 Pain Scale Pain Intensity 6 WNL - Physical Exam General Appearance: no apparent distress Eye Exam: PERRL/EOMI, eyes nml inspection Ears, Nose, Throat Exam: normal ENT inspection, TMs normal, pharynx normal, moist mucous membranes Neck Exam: normal inspection, non-tender, supple, full range of motion, No meningismus, No mass, No Brudzinski, No Kernig's, No carotid bruit Respiratory Exam: normal breath sounds, lungs clear, airway intact Cardiovascular Exam: regular rate/rhythm, normal heart sounds, normal peripheral pulses, capillary refill <2 sec, No murmur Gastrointestinal/Abdominal Exam: soft, normal bowel sounds, No tenderness Back Exam: normal inspection, normal range of motion Extremity Exam: normal inspection, normal range of motion 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, 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, 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 Exam: normal hearing, normal speech, PERRL, No abnormal eye position, No abnormal gag reflex, No abnormal pupil position, No abnormal speech, No facial asymmetry Coordination/Gait Exam: normal finger to nose, normal gait, normal cerebellar function, negative Romberg's sign Motor/Sensory Exam: no motor deficit, no sensory deficit, no pronator drift, negative Babinski's sign DTR Exam: bicep (R): 2+, bicep (L): 2+ Skin Exam: normal color, warm, dry, No rash Lymphatic Exam: No adenopathy SpO2 Interpretation: normal SpO2: 97 O2 Delivery: Room Air - Course Nursing assessment & vital signs reviewed: Yes Ordered Tests: Medication Summary Discontinued Medications Generic Name Dose Route Start Last Admin Trade Name Francia PRN Reason Stop Dose Admin Ketorolac Tromethamine 60 mg 01/22/23 16:53 01/22/23 17:10 Ketorolac Tromethamine 30 Mg/Ml Inj IM 01/22/23 16:54 60 mg STAT ONE Administration Ketorolac Tromethamine Confirm 01/22/23 17:08 Ketorolac Tromethamine 30 Mg/Ml Inj Administered 01/22/23 17:09 Dose 60 mg .ROUTE .STK-MED ONE Prochlorperazine Edisylate 10 mg 01/22/23 16:54 01/22/23 17:10 Prochlorperazine Edisylate 10 Mg/2 Ml Vial IM 01/22/23 16:55 10 mg STAT ONE Administration Prochlorperazine Edisylate Confirm 01/22/23 17:08 Prochlorperazine Edisylate 10 Mg/2 Ml Vial Administered 01/22/23 17:09 Dose 10 mg .ROUTE .STK-MED ONE - Progress Progress: improved Progress Note: 01/22/23 18:23 Nursing note and vital signs reviewed No food or housing insecurities noted Pt has a long h/o MGHA and current pain is fairly typical. She has no alarming symptoms, as fever/trauma/nuchal rigidity/focal weakness all denied. Counseled pt/family regarding: diagnosis, need for follow-up Medical Desision Making - Risk of complications Low Risk: Low risk of morbidity from additional dx testing or treatment - Departure Departure Disposition: Home Clinical Impression: Migraine with status migrainosus Condition: Stable Critical Care Time: No Referrals: ALESSANDRO ROCHA [Primary Care Provider] - Follow up/PCP as directed Instructions: Migraines (DC), Headache, Adult (DC) Additional Instructions: Follow up with your family MD or neurologist Return to ER for increasing pain, focal weakness, or temperature greater than 100.5
[2023-01-22] MEDS ORDERED: Compazine 10 MG/2 ML ONE (17:08)
[2023-01-22] MEDS ORDERED: TORAdol 30 mg Injection ONE (17:08)
== END 2023-01-22 17:24 | disposition home or self-care (01) ==
LOC: ED 16:03
DX: G43.901 Migraine, unspecified, not intractable, with status migrainosus (principal); Z79.899 Other long term (current) drug therapy; Z28.310 Unvaccinated for COVID-19
CPT/HCPCS: 96372; 99283; J1885

== ENCOUNTER 2023-08-01 18:35 | Emergency (ER) | payer BC ==
--- NOTE | 2023-08-01 18:48 | ERPHSYRPT ---
- History of Present Illness Time Seen by Provider: 08/01/23 18:48 Source: patient Exam Limitations: no limitations Physician History: This is an obese 33-year-old white female patient who presents with worsening frontal headache throbbing as well as sinus pressure that is worsened over 3 days. Her usual regimen to help prevent and abort migraine headaches is not working. She does have light sensitivity. Patient does have a history of recurrent sinusitis. She has not had a fever. Timing/Duration: day(s) (3) Quality: throbbing Head Pain Location: frontal Severity of Pain-Max: moderate Severity of Pain-Current: moderate Recent Head Trauma: no recent headache/trauma, chronic headaches Modifying Factors: Improves With: exposure to light, noise Associated Symptoms: nasal drainage, sensitive to light Previous symptoms: same symptoms as today, no recent treatment Allergies/Adverse Reactions: No Known Drug Allergies Allergy (Verified 08/01/23 18:48) Home Medications: Albuterol Sulfate [Albuterol Sulfate Hfa] 8.5 gm IH DAILY 12/26/21 [History] Ubrogepant [Ubrelvy] 100 mg PO DAILY PRN 12/26/21 [History] Hx Tetanus, Diphtheria Vaccination/Date Given: Yes Hx Influenza Vaccination/Date Given: No Hx Pneumococcal Vaccination/Date Given: No Travel Risk - International Travel Have you traveled outside of the country in past 3 weeks: No - Coronavirus Screening Are you exhibiting any of the following symptoms?: No Close contact with a COVID-19 positive Pt in past 14-21 Days: No - Vaccine Status Have you recieved a Covid-19 vaccination: No - Review of Systems Constitutional: No Symptoms Eyes: No Symptoms Ears, Nose, & Throat: Nose Congestion, Nose Discharge Respiratory: No Symptoms Cardiac: No Symptoms Abdominal/Gastrointestinal: No Symptoms Genitourinary Symptoms: No Symptoms Musculoskeletal: No Symptoms Skin: No Symptoms Neurological: Headache Psychological: No Symptoms Endocrine: No Symptoms Hematologic/Lymphatic: No Symptoms Immunological/Allergic: No Symptoms All Other Systems: Reviewed and Negative - Past Medical History Pertinent Past Medical History: Yes Neurological History: Migraines ENT History: No Pertinent History Cardiac History: No Pertinent History Respiratory History: Asthma Endocrine Medical History: Other Musculoskeletal History: No Pertinent History GI Medical History: No Pertinent History History: No Pertinent History Psycho-Social History: No Pertinent History Female Reproductive Disorders: No Pertinent History Other Medical History: pt had gestational diabetes with and preclampsia induced and del at 37 weeks - Past Surgical History Past Surgical History: Yes Neuro Surgical History: No Pertinent History Cardiac: No Pertinent History Respiratory: No Pertinent History Gastrointestinal: No Pertinent History Genitourinary: No Pertinent History Musculoskeletal: No Pertinent History Female Surgical History: Dilation & Curettage Other Surgical History: D&C. HX Nasal Surgery R/T Polyps - Social History Smoking Status: Never smoker Exposure to second hand smoke: No Alcohol Use: None Drug Use: none Patient Lives Alone: No Significant Family History: no pertinent family hx - Nursing Vital Signs Nursing Vital Signs: Initial Vital Signs Temperature 97.6 F 08/01/23 18:50 Pulse Rate 93 H 08/01/23 18:50 Respiratory Rate 15 08/01/23 18:50 Blood Pressure 130/83 08/01/23 18:50 O2 Sat by Pulse Oximetry 100 08/01/23 18:50 Pain Scale Pain Intensity 7 - Physical Exam General Appearance: no apparent distress, alert, anxiety, obese Eye Exam: PERRL/EOMI, eyes nml inspection Ears, Nose, Throat Exam: normal ENT inspection, moist mucous membranes Neck Exam: normal inspection, non-tender, supple, full range of motion Respiratory Exam: normal breath sounds, lungs clear, airway intact, No chest tenderness, No respiratory distress Cardiovascular Exam: regular rate/rhythm, normal heart sounds, normal peripheral pulses Gastrointestinal/Abdominal Exam: soft, normal bowel sounds, No tenderness Back Exam: normal inspection, normal range of motion, No CVA tenderness, No vertebral tenderness Extremity Exam: normal inspection, normal range of motion, pelvis stable 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, 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, 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 Exam: normal hearing, normal speech, PERRL, tongue midline Coordination/Gait Exam: normal gait, normal cerebellar function Motor/Sensory Exam: no motor deficit, no sensory deficit, no pronator drift Skin Exam: normal color, warm, dry Lymphatic Exam: No adenopathy SpO2 Interpretation: normal O2 Delivery: Room Air - Course Nursing assessment & vital signs reviewed: Yes Ordered Tests: Active Orders 24 hr Category Date Time Status HEAD WITHOUT CONTRAST [CT] Stat Exams 08/01/23 19:04 Taken Medication Summary Discontinued Medications Generic Name Dose Route Start Last Admin Trade Name Freq PRN Reason Stop Dose Admin Diphenhydramine HCl 50 mg 08/01/23 20:07 Diphenhydramine Hcl 50 Mg/Ml Vial IM 08/01/23 20:08 STAT ONE Hydromorphone HCl 0.5 mg 08/01/23 20:07 Hydromorphone 1 Mg/1ml Inj IM 08/01/23 20:08 STAT ONE - Progress Progress: improved, re-examined Air Movement: good Progress Note: 08/01/23 20:12 This patient's medical issue is 1 of low complexity. Level complex in the workup performed is based on review of the patient's past medical history, review the patient's medication list, review the patient drug allergy list, history of present illness and physical findings on examination. The workup in this patient includes CT scan of the head without contrast. CT scan of the head without contrast was interpreted by the radiologist and I reviewed the impression. Impression is a normal CT scan of the head with worsening pansinusitis Antibiotics given: Yes Counseled pt/family regarding: diagnosis, need for follow-up, rad results Medical Desision Making - Diagnostic Testing Diagnostic test were ordered, analyzed, and reviewed by me: Yes Radiological Interpretation: Reviewed by me, Teleradiologist Report - Risk of complications The pt has a mod risk of morbidity or mortality based on: Need for prescription drug management - Departure Departure Disposition: Home Clinical Impression: Headache, Pansinusitis Condition: Stable Critical Care Time: No Referrals: ALESSANDRO ROCHA [Primary Care Provider] - Follow up/PCP as directed Additional Instructions: Take your antibiotics, steroids and other medication as prescribed. Call your primary care provider next week to make arranges for follow-up appointment. Prescriptions: Amoxicillin 500 mg Cap [Amoxil 500 mg] 500 mg PO TID #30 cap Prednisone 10 mg [Deltasone 10 mg] 10 mg PO TID #12 tablet
[2023-08-01 18:56] VITALS: TEMP 97.6
[2023-08-01] MEDS ORDERED: BENADRYL 50 MG/ML IM ONE (20:07)
[2023-08-01] MEDS ORDERED: Hydromorphone 1 mg/ml Injection IM ONE (20:07)
[2023-08-01] MEDS ORDERED: TORAdol 30 mg Injection IM ONE (20:07)
[2023-08-01] MEDS ORDERED: Compazine 10 MG/2 ML IM ONE (20:07)
[2023-08-01] MEDS ORDERED: Rocephin 1000 MG INJ IM ONE (20:09)
[2023-08-01] MEDS ORDERED: BENADRYL 50 MG/ML ONE (20:26)
[2023-08-01] MEDS ORDERED: TORAdol 30 mg Injection ONE (20:26)
[2023-08-01] MEDS ORDERED: Hydromorphone 1 mg/ml Injection ONE (20:27)
[2023-08-01] MEDS ORDERED: Rocephin 1000 MG INJ ONE (20:27)
[2023-08-01] MEDS ORDERED: Compazine 10 MG/2 ML ONE (20:27)
[2023-08-01 20:43] VITALS: BP 119/95; PULSE 84; RESP 18; O2SAT 98
--- NOTE | 2023-08-01 22:11 | XRAY ---
Indication: Migraine headache. Multiple contiguous axial images obtained through the head without contrast. Comparison: January 26, 2020 Normal appearing brain parenchyma, ventricles, and bony calvarium. Worsening moderate mucosal thickening all paranasal sinuses. Mastoid air cells are clear. Impression: Worsening pansinusitis. Remaining CT head without contrast exam is again normal.
== END 2023-08-01 20:45 | disposition home or self-care (01) ==
LOC: ED 18:35
DX: R51.9 Headache, unspecified (principal); J32.4 Chronic pansinusitis; Z79.52 Long term (current) use of systemic steroids; Z79.899 Other long term (current) drug therapy; Z28.310 Unvaccinated for COVID-19
CPT/HCPCS: 70450; 96372; 99284; J0696; J1170; J1200; J1885

== ENCOUNTER 2023-08-25 17:37 | Emergency (ER) | payer BC ==
[2023-08-25] MEDS ORDERED: Hydromorphone 1 mg/ml Injection IM ONE (18:59)
[2023-08-25] MEDS ORDERED: BENADRYL 50 MG/ML IM ONE (18:59)
[2023-08-25] MEDS ORDERED: ZOFRAN ODT 4 MG PO ONE (18:59)
--- NOTE | 2023-08-25 19:07 | ERPHSYRPT ---
- History of Present Illness Time Seen by Provider: 08/25/23 18:55 Source: patient Exam Limitations: no limitations Patient Subjective Stated Complaint: migraine for 2 days Triage Nursing Assessment: Pts brought pt to the ER, vitals wnl, rates head pain as 8/10, states that she can usually shake her headaches but has not been able to do so, N&V, denies numbness and tingling or LOC, pulses normal, skin n/w/d Physician History: This is a 33-year-old obese white female patient who presents with 2-day history of persistent migraine headache of the right episcopal and right face into the jaw. She denies chest pain she denies shortness of breath. Patient was brought into the emergency department by her . Her usual regimen is not working. She does have light sensitivity. She took Excedrin at 1600 without improvement. She denies loss of consciousness. She has mild nausea without vomiting. Patient did not suffer any acute trauma to her head. A CT scan of the head was performed on 08/01/2023. There was pansinusitis present. There is no need to repeat this study. Timing/Duration: day(s) (2) Head Pain Location: frontal (Right), temporal (Right) Severity of Pain-Max: moderate Severity of Pain-Current: moderate Recent Head Trauma: no recent headache/trauma, occasional headaches Modifying Factors: Improves With: exposure to light Associated Symptoms: nausea/vomiting, sensitive to light Previous symptoms: same symptoms as today, recently seen Allergies/Adverse Reactions: No Known Drug Allergies Allergy (Verified 08/25/23 18:55) Home Medications: Albuterol Sulfate [Albuterol Sulfate Hfa] 8.5 gm IH DAILY 12/26/21 [History] Ubrogepant [Ubrelvy] 100 mg PO DAILY PRN 12/26/21 [History] Montelukast Sodium 10 mg [Singulair 10 MG] 10 mg PO DAILY 08/25/23 [History] Hx Tetanus, Diphtheria Vaccination/Date Given: Yes Hx Influenza Vaccination/Date Given: No Hx Pneumococcal Vaccination/Date Given: No Travel Risk - International Travel Have you traveled outside of the country in past 3 weeks: No - Coronavirus Screening Are you exhibiting any of the following symptoms?: No Close contact with a COVID-19 positive Pt in past 14-21 Days: No - Vaccine Status Have you recieved a Covid-19 vaccination: No 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 - Review of Systems Constitutional: No Symptoms Eyes: No Symptoms Ears, Nose, & Throat: No Symptoms Respiratory: No Symptoms Cardiac: No Symptoms Abdominal/Gastrointestinal: No Symptoms Genitourinary Symptoms: No Symptoms Musculoskeletal: No Symptoms Skin: No Symptoms Neurological: Headache Psychological: No Symptoms Endocrine: No Symptoms Hematologic/Lymphatic: No Symptoms Immunological/Allergic: No Symptoms All Other Systems: Reviewed and Negative - Past Medical History Pertinent Past Medical History: Yes Neurological History: Migraines ENT History: No Pertinent History Cardiac History: No Pertinent History Respiratory History: Asthma Endocrine Medical History: Other Musculoskeletal History: No Pertinent History GI Medical History: No Pertinent History History: No Pertinent History Psycho-Social History: No Pertinent History Female Reproductive Disorders: No Pertinent History Other Medical History: pt had gestational diabetes with and preclampsia induced and del at 37 weeks - Past Surgical History Past Surgical History: Yes Neuro Surgical History: No Pertinent History Cardiac: No Pertinent History Respiratory: No Pertinent History Gastrointestinal: No Pertinent History Genitourinary: No Pertinent History Musculoskeletal: No Pertinent History Female Surgical History: Dilation & Curettage Other Surgical History: D&C. HX Nasal Surgery R/T Polyps - Social History Smoking Status: Never smoker Exposure to second hand smoke: No Alcohol Use: None Drug Use: none Patient Lives Alone: No Significant Family History: no pertinent family hx - Female History Hx Last Menstrual Period: 2-3 weeks ago Hx Now: No - Nursing Vital Signs Nursing Vital Signs: Initial Vital Signs Temperature 98.2 F 08/25/23 18:48 Pulse Rate 90 08/25/23 18:48 Blood Pressure 115/79 08/25/23 18:48 O2 Sat by Pulse Oximetry 98 08/25/23 18:48 Pain Scale Pain Intensity 8 - Physical Exam General Appearance: no apparent distress, alert, anxiety Eye Exam: PERRL/EOMI, eyes nml inspection Ears, Nose, Throat Exam: normal ENT inspection, moist mucous membranes Neck Exam: normal inspection, non-tender, supple, full range of motion Respiratory Exam: airway intact, No chest tenderness, No respiratory distress Gastrointestinal/Abdominal Exam: No tenderness Back Exam: normal inspection, normal range of motion, No CVA tenderness, No vertebral tenderness Extremity Exam: normal inspection, normal range of motion, pelvis stable 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, 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, 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: 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 hearing, normal speech, PERRL Coordination/Gait Exam: normal gait, normal cerebellar function Motor/Sensory Exam: no motor deficit, no sensory deficit, no pronator drift Skin Exam: normal color, warm, dry Lymphatic Exam: No adenopathy SpO2 Interpretation: normal SpO2: 98 O2 Delivery: Room Air - Course Nursing assessment & vital signs reviewed: Yes Ordered Tests: Medication Summary Discontinued Medications Generic Name Dose Route Start Last Admin Trade Name Francia PRN Reason Stop Dose Admin Diphenhydramine HCl 50 mg 08/25/23 18:59 Diphenhydramine Hcl 50 Mg/Ml Vial IM 08/25/23 19:00 STAT ONE Hydromorphone HCl 1 mg 08/25/23 18:59 Hydromorphone 1 Mg/1ml Inj IM 08/25/23 19:00 STAT ONE Ondansetron HCl 4 mg 08/25/23 18:59 Zofran 4 Mg/Udtablet Orally Disintegrating PO 08/25/23 19:00 STAT ONE - Progress Progress: improved, re-examined Air Movement: good Progress Note: 08/25/23 19:08 This patient's medical issue is 1 of low complexity. The level of complexity and the workup performed is based on review of the patient's past medical history and the review of the patient's medication list, review the patient's drug allergy list, history of present illness and physical findings on examination. No radiographic or laboratory studies are necessary in this p atient. Counseled pt/family regarding: diagnosis, need for follow-up Medical Desision Making - Diagnostic Testing Diagnostic test were ordered, analyzed, and reviewed by me: Yes - Departure Departure Disposition: Home Clinical Impression: Migraine headache Condition: Stable Critical Care Time: No Referrals: ALESSANDRO ROCHA [Primary Care Provider] - Follow up/PCP as directed Additional Instructions: Continue your usual outpatient migraine headache medication. Keep your appointment with your neurologist on September 18, 2023.
[2023-08-25] MEDS ORDERED: ZOFRAN ODT 4 MG ONE (19:33)
[2023-08-25] MEDS ORDERED: BENADRYL 50 MG/ML ONE (19:33)
[2023-08-25] MEDS ORDERED: Hydromorphone 1 mg/ml Injection ONE (19:33)
[2023-08-25 19:34] VITALS: BP 115/79; PULSE 90; TEMP 98.2; O2SAT 98
== END 2023-08-25 20:08 | disposition home or self-care (01) ==
LOC: ED 17:37
DX: G43.909 Migraine, unspecified, not intractable, without status migrainosus (principal); Z79.899 Other long term (current) drug therapy; Z28.310 Unvaccinated for COVID-19
CPT/HCPCS: 96372; 99283; J1170; J1200; Q0162

== ENCOUNTER 2025-07-23 17:49 | Emergency (ER) | payer BC ==
[2025-07-23 18:14] VITALS: RESP 16; TEMP 98
--- NOTE | 2025-07-23 18:28 | ERPHSYRPT ---
- History of Present Illness Source: patient Exam Limitations: no limitations Patient Subjective Stated Complaint: patient states " I think I am having a miscarriage, patient states she is 4 weeks and 2 days, I had a small amount of dark vaginal spotting around 11 am, now I am having a parish red color vaginal bleeding in the last hour, I have been having cramping as well" Triage Nursing Assessment: patient presents to ed via private vehicle, patient able to ambulate into ed, patient alert and oriented x 4, skin pwd, patient has complaints of lower abdominal cramping that is minimal, patient also has scant amount of dark vaginal spotting, vitals wnl Timing/Duration: yesterday Activites at Onset: none Quality: cramping (Now resolved) Onset Location: RLQ, LLQ, suprapubic (Bilateral) Pain Radiation: none Severity of Pain-Max: mild Severity of Pain-Current: none Sexual intercourse history: non-contributory Modifying Factors: Improves With: nothing Associated Symptoms: vaginal discharge (Initially brown spotting and now with very mild bright red blood rectally) Hx Tetanus, Diphtheria Vaccination/Date Given: Yes Hx Influenza Vaccination/Date Given: No Hx Pneumococcal Vaccination/Date Given: No <ANGELIQUE LOWERY - Last Filed: 07/23/25 18:22> <ANNETTA WADE - Last Filed: 07/23/25 19:47> - History of Present Illness Time Seen by Provider: 07/23/25 18:05 Physician History: This is an overweight 34-year-old white female patient arrives her private vehicle and is a patient of nurse practitioner Lázaro with a complaint of mild spotting of brown vaginal discharge yesterday that his increased to bright red blood vaginally and associated bilateral lower quadrant cramping. The cramping was mild but has stopped at this time. Patient is 4 weeks by her last menstrual period dates. Patient has been taking serial test and has noticed that the markings are lightening up over the last 12 to 24 hours and essentially gone. Relatively recently the patient states she and her had a miscarriage. (ANGELIQUE LOWERY) Allergies/Adverse Reactions: No Known Drug Allergies Allergy (Verified 07/23/25 18:07) Home Medications: Albuterol Sulfate [Albuterol Sulfate Hfa] 8.5 gm IH DAILY 12/26/21 [History] Travel Risk - International Travel Have you traveled outside of the country in past 3 weeks: No - Emerging Infectious Disease Are you exhibiting symptoms associated with any current EIDs: No <ANGELIQUE LOWERY - Last Filed: 07/23/25 18:22> - Review of Systems Constitutional: No Symptoms Eyes: No Symptoms Ears, Nose, & Throat: No Symptoms Respiratory: No Symptoms Cardiac: No Symptoms Abdominal/Gastrointestinal: Abdominal Pain (Initially mild bilateral lower quadrant cramping but now has resolved) Genitourinary Symptoms: Vaginal Bleeding (Initial brown spotting followed by mild amount of bright red blood vaginally) Musculoskeletal: No Symptoms Skin: No Symptoms Neurological: No Symptoms Psychological: No Symptoms Endocrine: No Symptoms Hematologic/Lymphatic: No Symptoms Immunological/Allergic: No Symptoms All Other Systems: Reviewed and Negative <ANGELIQUE LOWERY - Last Filed: 07/23/25 18:22> - Past Medical History Pertinent Past Medical History: Yes Neurological History: Migraines ENT History: No Pertinent History Cardiac History: No Pertinent History Respiratory History: Asthma Endocrine Medical History: Other Musculoskeletal History: No Pertinent History GI Medical History: No Pertinent History History: No Pertinent History Psycho-Social History: No Pertinent History Female Reproductive Disorders: No Pertinent History Other Medical History: pt had gestational diabetes with and preclampsia induced and del at 37 weeks - Past Surgical History Past Surgical History: Yes Neuro Surgical History: No Pertinent History Cardiac: No Pertinent History Respiratory: No Pertinent History Gastrointestinal: No Pertinent History Genitourinary: No Pertinent History Musculoskeletal: No Pertinent History Female Surgical History: Dilation & Curettage Other Surgical History: D&C. HX Nasal Surgery R/T Polyps Significant Family History: no pertinent family hx - Female History Hx Last Menstrual Period: 06/23/25 Hx Now: Yes Gestational Age: 4 weeks 2d - Social History Smoking Status: Never smoker Exposure to second hand smoke: No Drug Use: none - Social Determinants of Health Will the patient participate in the screening: Yes Do you worry about a steady place to live?: No Do you have any problems with any of the following?: No known problems In the past 12 months,have you had to go without utilities?: No Transportation Issues: No Has anyone in your support network made you feel unsafe?: No Have you or anyone in your house had to go w/o enough food: No <ANGELIQUE LOWERY - Last Filed: 07/23/25 18:22> - Physical Exam General Appearance: no apparent distress, alert, anxiety, obese Eye Exam: PERRL/EOMI, eyes nml inspection Ears, Nose, Throat Exam: normal ENT inspection, moist mucous membranes Neck Exam: normal inspection, non-tender, supple, full range of motion Respiratory Exam: airway intact, No chest tenderness, No respiratory distress Gastrointestinal/Abdomen Exam: soft, normal bowel sounds, No tenderness, No guarding Pelvic Exam: not done Rectal Exam: not done Back Exam: normal inspection, normal range of motion, No CVA tenderness, No vertebral tenderness Extremity Exam: normal inspection, normal range of motion, pelvis stable Neurologic Exam: alert, 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, cooperative, tie inspector II-XII nml as tested, nml cerebellar function, nml station & gait, sensation nml Skin Exam: normal color, warm, dry Lymphatic Exam: No adenopathy SpO2 Interpretation: normal SpO2: 99 O2 Delivery: Room Air <ANGELIQUE LOWERY - Last Filed: 07/23/25 18:22> - Nursing Vital Signs Nursing Vital Signs: Initial Vital Signs Temperature 98 F 07/23/25 17:50 Pulse Rate 86 07/23/25 17:50 Respiratory Rate 16 07/23/25 17:50 Blood Pressure 150/95 07/23/25 17:50 O2 Sat by Pulse Oximetry 99 07/23/25 17:50 Pain Scale Pain Intensity 0 - Course Nursing assessment & vital signs reviewed: Yes <ANGELIQUE LOWERY - Last Filed: 07/23/25 18:22> Ordered Tests: Active Orders 24 hr Category Date Time Status CBC W DIFF Stat Lab 07/23/25 18:55 Completed CMP Stat Lab 07/23/25 18:55 Completed CULTURE,URINE Stat Lab 07/23/25 18:40 Received HCG QUALITATIVE, SERUM Stat Lab 07/23/25 18:55 Completed HCG, Quantitative (Inhouse) Stat Lab 07/23/25 18:55 Completed UA W/RFX UR CULTURE Stat Lab 07/23/25 18:40 Completed Lab/Rad Data: Laboratory Result Diagrams 07/23/25 18:55 07/23/25 18:55 Laboratory Results 12/13/25 12/13/25 12/13/25 Range/Units 18:55 18:55 18:55 WBC 12.0 H (3.98-10.04) x10^3/uL RBC 4.63 (3.93-5.22) x10^6/uL Hgb 12.0 (11.2-15.7) g/dL Hct 38.2 (34.1-44.9) % MCV 82.5 (79.4-94.8) fL MCH 25.9 (25.6-32.2) pg MCHC 31.4 L (32.2-35.5) g/dL RDW 14.3 (11.7-14.4) % Plt Count 402 H (182-369) x10^3/uL MPV 9.3 L (9.4-12.3) fL Gran % 62.4 (34.0-71.1) % Immature Gran % (Auto) 0.6 H (0.001-0.429) % Nucleat RBC Rel Count 0.0 (0.00-0.2) % Eos # (Auto) 0.57 H (0.04-0.36) x10^3/uL Immature Gran # (Auto) 0.07 H (0.001-0.031) x10^3u/L Absolute Lymphs (auto) 3.06 (1.18-3.74) x10^3/uL Absolute Monos (auto) 0.73 (0.24-0.86) x10^3/uL Absolute Nucleated RBC 0.00 (0.00-0.012) x10^3u/L Lymphocytes % 25.5 (19.3-51.7) % Monocytes % 6.1 (4.7-12.5) % Eosinophils % 4.7 (0.7-5.8) % Basophils % 0.7 (0.1-1.2) % Absolute Granulocytes 7.50 H (1.56-6.13) x10^3/uL Basophils # 0.08 (0.01-0.08) x10^3/uL Sodium 136 (135-145) mmol/L Potassium 3.9 (3.5-5.1) mmol/L Chloride 101 (98-107) mmol/L Carbon Dioxide 27 (22-30) mmol/L Anion Gap 12.5 (5-15) MEQ/L BUN 13 (7-17) mg/dL Creatinine 0.82 (0.52-1.04) mg/dL Estimated GFR 96.2 ML/MIN Glucose 103 (74-106) mg/dL Calcium 9.5 (8.4-10.2) mg/dL Total Bilirubin 0.40 (0.2-1.3) mg/dL AST 26 (14-36) U/L ALT 16 (0-35) U/L Alkaline Phosphatase 62 (38-126) U/L Serum Total Protein 7.8 (6.3-8.2) g/dL Albumin 4.2 (3.5-5.0) g/dL Serum HCG, Qual NEGATIVE (NEGATIVE) Beta HCG, Quant < 2.39 mIU/ml Urine Color (Yellow) Urine Appearance (Clear) Urine pH (4.6-8.0) Ur Specific Crum (1.005-1.030) Urine Protein (Negative) Urine Glucose (UA) (Negative) mg/dL Urine Ketones (Negative) Urine Blood (Negative) Urine Nitrite (Negative) Urine Bilirubin (Negative) Urine Urobilinogen (0.2) mg/dL Ur Leukocyte Esterase (Negative) U Hyaline Cast (Auto) (0-2) /LPF Urine Microscopic RBC (0-5) /HPF Urine Microscopic WBC (0-5) /HPF Ur Epithelial Cells (None Seen) /HPF Urine Bacteria (None Seen) /HPF Urine Culture Reflexed (NO) 07/23/25 Range/Units 18:40 WBC (3.98-10.04) x10^3/uL RBC (3.93-5.22) x10^6/uL Hgb (11.2-15.7) g/dL Hct (34.1-44.9) % MCV (79.4-94.8) fL MCH (25.6-32.2) pg MCHC (32.2-35.5) g/dL RDW (11.7-14.4) % Plt Count (182-369) x10^3/uL MPV (9.4-12.3) fL Gran % (34.0-71.1) % Immature Gran % (Auto) (0.001-0.429) % Nucleat RBC Rel Count (0.00-0.2) % Eos # (Auto) (0.04-0.36) x10^3/uL Immature Gran # (Auto) (0.001-0.031) x10^3u/L Absolute Lymphs (auto) (1.18-3.74) x10^3/uL Absolute Monos (auto) (0.24-0.86) x10^3/uL Absolute Nucleated RBC (0.00-0.012) x10^3u/L Lymphocytes % (19.3-51.7) % Monocytes % (4.7-12.5) % Eosinophils % (0.7-5.8) % Basophils % (0.1-1.2) % Absolute Granulocytes (1.56-6.13) x10^3/uL Basophils # (0.01-0.08) x10^3/uL Sodium (135-145) mmol/L Potassium (3.5-5.1) mmol/L Chloride (98-107) mmol/L Carbon Dioxide (22-30) mmol/L Anion Gap (5-15) MEQ/L BUN (7-17) mg/dL Creatinine (0.52-1.04) mg/dL Estimated GFR ML/MIN Glucose (74-106) mg/dL Calcium (8.4-10.2) mg/dL Total Bilirubin (0.2-1.3) mg/dL AST (14-36) U/L ALT (0-35) U/L Alkaline Phosphatase (38-126) U/L Serum Total Protein (6.3-8.2) g/dL Albumin (3.5-5.0) g/dL Serum HCG, Qual (NEGATIVE) Beta HCG, Quant mIU/ml Urine Color Yellow (Yellow) Urine Appearance Cloudy A (Clear) Urine pH 5.0 (4.6-8.0) Ur Specific Crum 1.025 (1.005-1.030) Urine Protein Trace A (Negative) Urine Glucose (UA) Negative (Negative) mg/dL Urine Ketones Negative (Negative) Urine Blood Large A (Negative) Urine Nitrite Negative (Negative) Urine Bilirubin Negative (Negative) Urine Urobilinogen 0.2 (0.2) mg/dL Ur Leukocyte Esterase Small A (Negative) U Hyaline Cast (Auto) NONE SEEN (0-2) /LPF Urine Microscopic RBC >100 A (0-5) /HPF Urine Microscopic WBC 21-50 A (0-5) /HPF Ur Epithelial Cells Rare (None Seen) /HPF Urine Bacteria Rare A (None Seen) /HPF Urine Culture Reflexed YES (NO) - Progress Progress: improved, re-examined Air Movement: good <ANGELIQUE LOWERY - Last Filed: 07/23/25 18:22> - Progress Blood Culture(s) Obtained: No Antibiotics given: Yes Counseled pt/family regarding: lab results, diagnosis, need for follow-up <ANNETTA WADE - Last Filed: 07/23/25 19:47> - Progress Progress Note: 07/23/25 18:26 My medical decision making and assignment of moderate complexity of this patient's medical issue today is based on review of the patient's past medical history, review the patient's medication list, review the patient's drug allergy list, history present illness and physical findings on examination. The workup in this patient includes CBC, CMP, beta-hCG, urinalysis. It is too early to obtain heart tones. Likely too early to visualize sac. In addition, the patient's vaginal bleeding is nearly resolved and her cramping has resolved. She has no abdominal pain. Differential diagnosis includes but is not limited to urinary tract infection, spontaneous miscarriage, first trimester vaginal bleeding 07/23/25 18:28 I am transferring care of this patient to Dr. Wade at shift change. He will follow-up on pending studies and make final disposition (ANGELIQUE LOWERY) 07/23/25 19:45 Assumed care at 1900 with labs pending. Hb wnl, CMP wnl, UA shows UTI with blood, urine and serum bHCG neg. Discussed results with patient. Will start on Macrobid. (ANNETTA WADE) Medical Desision Making - Independent Historian Additional History obtained from: Tso/EMT <ANGELIQUE LOWERY - Last Filed: 07/23/25 18:22> - Diagnostic Testing Diagnostic test were ordered, analyzed, and reviewed by me: Yes Radiological Interpretation: Interpreted by me - Risk of complications The pt has a mod risk of morbidity or mortality based on: Need for prescription drug management <ANNETTA WADE - Last Filed: 07/23/25 19:47> - Departure Departure Disposition: Home Critical Care Time: No <ANGELIQUE LOWERY - Last Filed: 07/23/25 18:22> <ANNETTA WADE - Last Filed: 07/23/25 19:47> - Departure Clinical Impression: Vaginal bleeding, UTI (urinary tract infection) Condition: Stable Referrals: ROBIN CHURCHILL, [employer] [Primary Care Provider, UNKNOWN] - Follow up/PCP as directed Instructions: Urinary tract infections in adults
[2025-07-23 19:05] LABS: BASOPHIL % 0.7 % (0.1-1.2); Basophil (Absolute #) 0.08 x10^3/uL (0.01-0.08); Eosinophil (Absolute #) 0.57 x10^3/uL (0.04-0.36); Hematocrit 38.2 % (34.1-44.9); Hemoglobin 12.0 g/dL (11.2-15.7); IMMATURE GRAN # 0.07 x10^3u/L (0.001-0.031); IMMATURE GRAN % 0.6 % (0.001-0.429); Lymphocyte (Absolute #) 3.06 x10^3/uL (1.18-3.74); Mean Corpuscular Hemoglobin 25.9 pg (25.6-32.2); Mean Corpuscular Hgb Concent. 31.4 g/dL (32.2-35.5); Monocyte (Absolute #) 0.73 x10^3/uL (0.24-0.86); NUCLEATED RBC # 0.00 x10^3u/L (0.00-0.012); NUCLEATED RBC % 0.0 % (0.00-0.2); Platelet Count 402 x10^3/uL (182-369); Red Blood Count 4.63 x10^6/uL (3.93-5.22); White Blood Count 12.0 x10^3/uL (3.98-10.04)
[2025-07-23 19:16] LABS: Glucose, Urine Negative (Negative); Protein,Urine Dip Trace (Negative); RBC >100 /HPF (0-5); WBC 21-50 /HPF (0-5)
[2025-07-23 19:20] VITALS: O2SAT 100
[2025-07-23 19:38] LABS: Calcium 9.5 mg/dL (8.4-10.2); Carbon Dioxide 27 mmol/L (22-30); Creatinine 1 0.82 mg/dL (0.52-1.04); EST GLOMERULAR FILTRATION RATE 96.2 ML/MIN; Glucose 103 mg/dL (74-106); Potassium 3.9 mmol/L (3.5-5.1); SGOT/AST 26 U/L (14-36); SGPT/ALT 16 U/L (0-35); Total Protein 7.8 g/dL (6.3-8.2)
[2025-07-23 19:39] LABS: HCG SERUM TEST NEGATIVE (NEGATIVE)
[2025-07-23] MEDS ORDERED: Macrobid 100MG Capsule ONE (19:51)
[2025-07-23] MEDS: Macrobid 100MG Capsule PO ONE (19:52)
[2025-07-23 19:57] VITALS: BP 125/95; PULSE 88
== END 2025-07-23 20:06 | disposition home or self-care (01) ==
LOC: ED 17:49
DX: N93.9 Abnormal uterine and vaginal bleeding, unspecified (principal); N39.0 Urinary tract infection, site not specified